=== PATIENT | female | born 1980 | race Caucasian/White ===

== ENCOUNTER 2016-08-18 15:05 | Emergency (ER) | payer OTHER ==
[2016-08-18] MEDS ORDERED: METHOCARBAMOL 500 MG TAB As Ordered ONE (16:08)
[2016-08-18] MEDS ORDERED: IBUPROFEN 800 MG TAB As Ordered ONE (16:09)
[2016-08-18 16:32] LABS: BASO % 0.3 % (0.0-1.0); EOS # 0.3 K/mm3 (0.0-0.50); EOS % 2.7 % (0.0-3.0); LARGE UNSTAINED CELL # 0.1 K/mm3 (0.0-0.4); LYMPH # 2.5 K/mm3 (1.5-4.5); LYMPH % 24.4 % (24.0-44.0); MEAN CORPUSCULAR HEMOGLOBIN 29.9 pg (27.0-33.0); MONO # 0.4 K/mm3 (0.0-0.8); NEUTROPHILS # 6.6 K/mm3 (1.8-7.7); NEUTROPHILS % 67.6 % (36.0-66.0); PLATELET COUNT, AUTOMATED 264 k/mm3 (150-450); RED CELL DISTRIBUTION WIDTH 13.8 % (11.5-14.5); WHITE BLOOD COUNT 9.8 K/mm3 (4.0-10.0)
[2016-08-18 16:47] LABS: ALBUMIN 3.9 GM/DL (3.2-5.2); ALBUMIN/GLOBULIN RATIO 1.03 (1.00-1.93); ALKALINE PHOSPHATASE 100 U/L (45-117); ALT/SGPT 30 U/L (12-78); AMYLASE 30 U/L (25-115); ANION GAP 11 MEQ/L (8-16); AST/SGOT 21 U/L (15-37); BILIRUBIN,DIRECT < 0.1 MG/DL (0.0-0.2); BILIRUBIN,TOTAL 0.4 MG/DL (0.2-1.0); BLOOD UREA NITROGEN 10 MG/DL (7-18); CALCIUM LEVEL 8.7 MG/DL (8.5-10.1); CARBON DIOXIDE LEVEL 27 MEQ/L (21-32); CHLORIDE LEVEL 100 MEQ/L (98-107); CREATININE FOR GFR 1.01 MG/DL (0.55-1.02); GLOMERULAR FILTRATION RATE > 60.0 (>60); GLUCOSE, FASTING 133 MG/DL (70-105); POTASSIUM SERUM 3.9 MEQ/L (3.5-5.1); SODIUM LEVEL 138 MEQ/L (136-145); TOTAL PROTEIN 7.7 GM/DL (6.4-8.2)
--- NOTE | 2016-08-18 17:34 | EDDOCDS ---
Nurse's Notes [facility] Name: Sarah Salmeron Age: 36 yrs Sex: Female : 1980 Arrival Date: 08/18/2016 Time: 15:05 Bed PR Private MD: Diagnosis: Strain of muscle, fascia and tendon of abdomen, lower back and pelvis Presentation: 08/18 15:09 Presenting complaint: Patient states: pt c/o upper back pain for approx 1 week. states ead "it felt like something popped." also states, "it goes from front to back, last time it felt like this I had a kidney infection.". Acute neurological deficits are not present. Mechanism of Injury: No Mechanism of Injury. Adult Sepsis Screening: The patient does not have new or worsening altered mentation. Patient's respiratory rate is less than 22. Systolic blood pressure is greater than 100. Patient has a qSOFA score of 0- Negative Sepsis Screen. Suicide/Homicide risk assessment- the patient denies having any suicidal and/or homicidal ideations and does not present with any other emotional, behavioral or mental health complaints. 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 Transition of care: patient was not received from another setting of care. 15:09 Acuity: WILLY Level 3 ead 15:09 Method Of Arrival: Walkin/Carried/Asstd ead Triage Assessment: 15:11 General: Appears in no apparent distress, Behavior is appropriate for age, cooperative. ead Pain: Location: back Pain currently is 9 out of 10 on a pain scale. HIV screening NA for this visit Offered previously. Neurological: No deficits noted. Respiratory: Airway is patent Respiratory effort is even, unlabored. GI: Reports nausea, Denies vomiting. : Denies burning with urination, pain with urination. Derm: Skin is pink, warm & dry. Musculoskeletal: Reports pain in back. 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 none - PMHx: Anxiety; Bipolar disorder; Panic Disorder; mitral valve prolapse; - PSHx: none; - Social history: Smoking status: Patient uses tobacco products, current every day smoker. No barriers to communication noted, The patient speaks fluent Ugandan, Speaks appropriately for age. - Family history: Not pertinent. - : The pt / caregiver states he / she is not on anticoagulants. Home medication list is obtained from the patient. - Exposure Risk Screening:: None identified. Screenin:31 Screening information is obtained from the patient. Fall risk: No risks identified. dsf Assistance ADL's: requires no assistance with activities of daily living. Abuse/DV Screen: The patient / caregiver reports he/she is: not in a situation that causes fear, pain or injury. Nutritional screening: No deficits noted. Advance Directives: Currently, there is no health care proxy. home support is adequate. Assessment: 16:17 Adult Sepsis Screening: The patient does not have new or worsening altered mentation. dsf Patient's respiratory rate is less than 22. Systolic blood pressure is greater than 100. Patient has a qSOFA score of 0- Negative Sepsis Screen. General: Appears in no apparent distress, Behavior is appropriate for age, cooperative. Pain: Location: upper back Pain currently is 8 out of 10 on a pain scale. Neurological: Level of Consciousness is awake, alert. Cardiovascular: Capillary refill < 3 seconds. Respiratory: Airway is patent Respiratory effort is even, unlabored, Respiratory pattern is regular, symmetrical. Derm: Skin is pink, warm & dry. 17:31 General: Appears in no apparent distress, Behavior is appropriate for age, cooperative. dsf Pain: Pain currently is 6 out of 10 on a pain scale. Neurological: Level of Consciousness is awake, alert, Oriented to person, place, time. Cardiovascular: Capillary refill < 3 seconds. Respiratory: Airway is patent Respiratory effort is even, unlabored, Respiratory pattern is regular, symmetrical. Derm: Skin is pink, warm & dry. Vital Signs: 15:07 BP 151 / 96; Pulse 98; Resp 18; Temp 96.6(O); Pulse Ox 99% ; Weight 130.18 kg (R); lr2 Height 5 ft. 5 in. (165.10 cm); 17:21 BP 137 / 83; Pulse 84; Resp 18; Temp 98.3(TE); Pulse Ox 96% on R/A; Pain 6/10; ar3 17:33 Pain 6/10; dsf 17:33 Pain 6/10; dsf 15:07 Body Mass Index 47.76 (130.18 kg, 165.10 cm) lr2 Vitals: 15:07 Log In Time: August 18, 2016 at 15:05. lr2 ED Course: 15:07 Patient visited by Chandrika Zepeda. lr2 15:07 Patient moved to Waiting lr2 15:08 Patient moved to Pre RCE lr2 15:10 Triage Initiated ead 15:21 Patient moved to Triage 1 [facility] 16:00 Krish Dubon PA is PHCP. mo1 16:00 Seven Kowalski MD is Attending Physician. mo1 16:01 Patient visited by Krish Dubon PA. mo1 16:17 Patient visited by Caitie Muñoz RN. dsf 16:17 Amylase Sent. dsf 16:17 Basic Metabolic Profile Sent. dsf 16:17 CBC with Diff Sent. dsf 16:17 Lipase Sent. dsf 16:17 Liver Profile Sent. dsf 16:17 Urinalysis Sent. dsf 16:17 Urine Culture Sent. dsf 16:19 Patient moved to TR7 dsf 16:24 Patient name changed from Sarah\\S\\\\S\\Salmeron\\S\\ to Sarah\\S\\ \\S\\Salmeron. EDMS 16:26 [facility] Payment Agreement was scanned into [employer] and attached to record. gjb 17:13 Patient moved to PR1 / 25 ar3 17:22 Patient visited by Yahaira Avila PCA. ar3 17:32 No IV's were initiated during this patient's visit. No procedures done that require dsf assistance. 17:33 The patient / caregiver is instructed regarding the plan of care and ED course. dsf Administered Medications: 16:18 Drug: Ibuprofen 800 mg [ibuprofen 800 mg tablet (1 tabs)] Route: PO; dsf 17:33 Follow up: Pain 6/10 Adult dsf 16:19 Drug: Methocarbamol 1 grams [methocarbamol 500 mg tablet (2 tabs)] Route: PO; dsf 17:33 Follow up: Pain 6/10 Adult; Response: Confirmed pt not driving. dsf Point of Care Testing: Urine : 16:19 hCG Reading: Negative; Control Reading: Positive; dsf Ranges: Order Results: Lab Order: Amylase; SPEC'M 08/18/16 16:11 Test: AMYLASE; Value: 30; Range: 25-115; Units: U/L; Status: F Lab Order: Basic Metabolic Profile; SPEC'M 08/18/16 16:11 Test: GLUCOSE, FASTING; Value: 133; Range: 70-105; Abnormal: Above high normal; Units: MG/DL; Status: F Test: BLOOD UREA NITROGEN; Value: 10; Range: 7-18; Units: MG/DL; Status: F Test: CREATININE FOR GFR; Value: 1.01; Range: 0.55-1.02; Units: MG/DL; Status: F Test: GLOMERULAR FILTRATION RATE; Value: > 60.0; Range: >60; Status: F Test: SODIUM LEVEL; Value: 138; Range: 136-145; Units: MEQ/L; Status: F Test: POTASSIUM SERUM; Value: 3.9; Range: 3.5-5.1; Units: MEQ/L; Status: F Test: CHLORIDE LEVEL; Value: 100; Range: 98-107; Units: MEQ/L; Status: F Test: CARBON DIOXIDE LEVEL; Value: 27; Range: 21-32; Units: MEQ/L; Status: F Test: ANION GAP; Value: 11; Range: 8-16; Units: MEQ/L; Status: F Test: CALCIUM LEVEL; Value: 8.7; Range: 8.5-10.1; Units: MG/DL; Status: F Test Note: ; Units are mL/min/1.73 m2 Chronic Kidney Disease Staging per NKF: Stage I & II GFR >=60 Normal to Mildly Decreased Stage III GFR 30-59 Moderately Decreased Stage IV GFR 15-29 Severely Decreased Stage V GFR <15 Very Little GFR Left ESRD GFR <15 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 Lab Order: CBC with Diff; SPEC'M 08/18/16 16:11 Test: WHITE BLOOD COUNT; Value: 9.8; Range: 4.0-10.0; Units: K/mm3; Status: F Test: RED BLOOD COUNT; Value: 5.01; Range: 4.00-5.40; Units: M/mm3; Status: F Test: HEMOGLOBIN; Value: 15.0; Range: 12.0-16.0; Units: g/dl; Status: F Test: HEMATOCRIT; Value: 44.0; Range: 36.0-47.0; Units: %; Status: F Test: MEAN CORPUSCULAR VOLUME; Value: 88.0; Range: 80.0-96.0; Units: fl; Status: F Test: MEAN CORPUSCULAR HEMOGLOBIN; Value: 29.9; Range: 27.0-33.0; Units: pg; Status: F Test: MEAN CORPUSCULAR HGB CONC; Value: 34.0; Range: 32.0-36.5; Units: g/dl; Status: F Test: RED CELL DISTRIBUTION WIDTH; Value: 13.8; Range: 11.5-14.5; Units: %; Status: F Test: PLATELET COUNT, AUTOMATED; Value: 264; Range: 150-450; Units: k/mm3; Status: F Test: NEUTROPHILS %; Value: 67.6; Range: 36.0-66.0; Abnormal: Above high normal; Units: %; Status: F Test: LYMPH %; Value: 24.4; Range: 24.0-44.0; Units: %; Status: F Test: MONO %; Value: 4.0; Range: 0.0-5.0; Units: %; Status: F Test: EOS %; Value: 2.7; Range: 0.0-3.0; Units: %; Status: F Test: BASO %; Value: 0.3; Range: 0.0-1.0; Units: %; Status: F Test: LARGE UNSTAINED CELL %; Value: 1.0; Range: 0.0-4.0; Units: %; Status: F Test: NEUTROPHILS #; Value: 6.6; Range: 1.8-7.7; Units: K/mm3; Status: F Test: LYMPH #; Value: 2.5; Range: 1.5-4.5; Units: K/mm3; Status: F Test: MONO #; Value: 0.4; Range: 0.0-0.8; Units: K/mm3; Status: F Test: EOS #; Value: 0.3; Range: 0.0-0.50; Units: K/mm3; Status: F Test: BASO #; Value: 0.0; Range: 0.0-0.2; Units: K/mm3; Status: F Test: LARGE UNSTAINED CELL #; Value: 0.1; Range: 0.0-0.4; Units: K/mm3; Status: F Lab Order: Lipase; [facility] 08/18/16 16:11 Test: LIPASE; Value: 156; Range: 73-393; Units: U/L; Status: F Lab Order: Liver Profile; [facility] 08/18/16 16:11 Test: AST/SGOT; Value: 21; Range: 15-37; Units: U/L; Status: F Test: ALT/SGPT; Value: 30; Range: 12-78; Units: U/L; Status: F Test: ALKALINE PHOSPHATASE; Value: 100; Range: 45-117; Units: U/L; Status: F Test: BILIRUBIN,TOTAL; Value: 0.4; Range: 0.2-1.0; Units: MG/DL; Status: F Test: BILIRUBIN,DIRECT; Value: < 0.1; Range: 0.0-0.2; Units: MG/DL; Status: F Test: TOTAL PROTEIN; Value: 7.7; Range: 6.4-8.2; Units: GM/DL; Status: F Test: ALBUMIN; Value: 3.9; Range: 3.2-5.2; Units: GM/DL; Status: F Test: ALBUMIN/GLOBULIN RATIO; Value: 1.03; Range: 1.00-1.93; Status: F Lab Order: Urinalysis; [facility] 08/18/16 16:11 Test: APPEARANCE, URINE; Value: CLEAR; Range: CLEAR; Status: F Test: COLOR, URINE; Value: YELLOW; Range: YELLOW; Status: F Test: PH,URINE; Value: 5.0; Range: 5.0-9.0; Units: UNITS; Status: F Test: SPECIFIC GRAVITY URINE AUTO; Value: 1.019; Range: 1.002-1.035; Status: F Test: PROTEIN, URINE AUTO; Value: NEGATIVE; Range: NEGATIVE; Units: mg/dL; Status: F Test: GLUCOSE, URINE (UA) AUTO; Value: NEGATIVE; Range: NEGATIVE; Units: mg/dL; Status: F Test: KETONE, URINE AUTO; Value: NEGATIVE; Range: NEGATIVE; Units: mg/dL; Status: F Test: UROBILINOGEN, URINE AUTO; Value: 0.2; Range: 0.0-2.0; Units: mg/dL; Status: F Test: BILIRUBIN, URINE AUTO; Value: NEGATIVE; Range: NEGATIVE; Status: F Test: NITRITE, URINE AUTO; Value: NEGATIVE; Range: NEGATIVE; Status: F Test: LEUKOCYTE ESTERASE, URINE AUTO; Value: NEGATIVE; Range: NEGATIVE; Status: F Test: BLOOD, URINE BLOOD; Value: NEGATIVE; Range: NEGATIVE; Status: F Test: WBC, URINE AUTO; Value: 1; Range: 0-3; Units: /HPF; Status: F Test: RBC, URINE AUTO; Value: 2; Range: 0-3; Units: /HPF; Status: F Test: BACTERIA, URINE AUTO; Value: 1+; Range: NEGATIVE; Abnormal: Above high normal; Status: F Test: SQUAMOUS EPITHELIAL CELL UR AU; Value: 1; Range: 0-6; Units: /HPF; Status: F Test: MUCUS, URINE; Value: SMALL; Range: NEGATIVE; Status: F Test: HYALINE CAST, URINE AUTO; Value: 0; Range: 0-1; Units: /LPF; Status: F Test: AMORPHOUS SEDIMENT; Value: SMALL; Range: NEGATIVE; Abnormal: Above high normal; Status: F Outcome: 17:10 Discharge ordered by Provider. mo1 17:32 Discharge Assessment: Patient awake, alert and oriented x 3. No cognitive and/or dsf functional deficits noted. Patient verbalized understanding of disposition instructions. patient administered narcotics - no. The following High Risk Discharge criteria are identified: None. Discharged to home ambulatory. Condition: stable. Discharge instructions given to patient, Instructed on discharge instructions, follow up and referral plans. medication usage, no driving heavy equipment, Demonstrated understanding of instructions, medications, Pt was receptive of discharge instructions/ teaching. Prescriptions given X 2, Work note provided to patient. No special radiology studies were completed. Property sent home with patient. 17:33 Patient left the ED. dsf Signatures: Dispatcher [employer] EDCT Mary Mckinney RN RN kpj Rabon, Alicia, CAMP MAINTENANCE SUPERVISOR CAMP MAINTENANCE SUPERVISOR ar3 Caitie Muñoz RN RN dsf Krish Dubon PA PA mo1 Dior HawkinsRN Stephani Cesar Laura lr2 MTDD
--- NOTE | 2016-08-18 17:34 | EDDOCDS ---
Physician Documentation [facility] Name: Sarah Salmeron Age: 36 yrs Sex: Female : 1980 Arrival Date: 08/18/2016 Time: 15:05 Bed PR Private MD: Disposition: 08/18/16 17:10 Discharged to Home/Self Care. Impression: Strain of muscle, fascia and tendon of abdomen, lower back and pelvis. - Condition is Stable. - Discharge Instructions: Back Pain, Adult, Muscle Strain. - Prescriptions for Ibuprofen 600 mg Oral Tablet - take 1 tablet by ORAL route every 6 hours As needed take with food; 30 tablet. Robaxin 500 mg Oral Tablet - take 2 tablet by ORAL route every 6 hours As needed; 40 tablet. - Work Release Form - 1 day, Medication Reconciliation, Local Pharmacy Hours form. - Follow up: Private Physician; When: Call to arrange an appointment; Reason: Recheck today's complaints, Continuance of care. - Problem is new. - Symptoms are unchanged. Historical: - Allergies: Naproxen; - Home Meds: 1. none - PMHx: Anxiety; Bipolar disorder; Panic Disorder; mitral valve prolapse; - PSHx: none; - Social history: Smoking status: Patient uses tobacco products, current every day smoker. No barriers to communication noted, The patient speaks fluent Wolof, Speaks appropriately for age. - Family history: Not pertinent. - : The pt / caregiver states he / she is not on anticoagulants. Home medication list is obtained from the patient. - Exposure Risk Screening:: None identified. 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 5 in. (165.10 cm); 17:21 BP 137 / 83; Pulse 84; Resp 18; Temp 98.3(TE); Pulse Ox 96% on R/A; Pain 6/10; ar3 17:33 Pain 6/10; dsf 17:33 Pain 6/10; dsf 15:07 Body Mass Index 47.76 (130.18 kg, 165.10 cm) lr2 MDM: 16:06 Methocarbamol 1 grams PO once ordered. mo1 16:06 Ibuprofen 800 mg PO once ordered. mo1 16:06 UCG by Nursing ordered. mo1 16:07 Amylase Ordered. EDMS 16:07 Basic Metabolic Profile Ordered. EDMS 16:07 CBC with Diff Ordered. EDMS 16:07 Lipase Ordered. EDMS 16:07 Liver Profile Ordered. EDMS 16:07 Urinalysis Ordered. EDMS 16:07 Urine Culture Ordered. EDMS 16:08 Abdomen, Flat\E\Upright,PA Chest Ordered. EDMS 16:08 NOTHING BY MOUTH+DIET ordered. EDMS 16:25 Financial registration complete. b 16:26 [facility] Payment Agreement was scanned into [employer] and attached to record. gjb 17:07 Amylase Reviewed. mo1 17:07 Urinalysis Reviewed. mo1 17:08 CBC with Diff Reviewed. mo1 17:08 Basic Metabolic Profile Reviewed. mo1 17:09 Liver Profile Reviewed. mo1 17:09 Lipase Reviewed. mo1 Point of Care Testing: Urine : 16:19 hCG Reading: Negative; Control Reading: Positive; dsf Ranges: Administered Medications: 16:18 Drug: Ibuprofen 800 mg [ibuprofen 800 mg tablet (1 tabs)] Route: PO; dsf 17:33 Follow up: Pain 6/10 Adult dsf 16:19 Drug: Methocarbamol 1 grams [methocarbamol 500 mg tablet (2 tabs)] Route: PO; dsf 17:33 Follow up: Pain 6/10 Adult; Response: Confirmed pt not driving. dsf Signatures: Dispatcher [employer] EDID Caitie Muñoz RN RN dsf Krish Dubon PA PA mo1 Dior HawkinsRN Stephani Cesar The chart was reviewed and I authenticate all verbal orders and agree with the evaluation and treatment provided.Corrections: (The following items were deleted from the chart) 16:13 16:07 LAB URINE TEST+LAB ordered. EDMS EDMS Attachments: 16:26 [facility] Payment Agreement gjb MTDD
--- NOTE | 2016-08-18 17:46 | REP ---
Abdominal series: three views: History: Mid back pain. Findings: Upright chest radiograph is normal. Heart size is normal. Lung charles are clear. There is no evidence of infiltrate or free subdiaphragmatic air. Supine and erect views of the abdomen demonstrate a normal bowel gas pattern. Psoas margins and flank stripes are intact. No mass, organomegaly, or pathologic calcification is appreciated. Impression: Negative three-view abdominal series. Signed by Haja Paul MD 08/18/2016 08:05 P
--- NOTE | 2016-08-20 18:34 | EDDOCDS ---
Physician Documentation [facility] Name: Sarah Salmeron Age: 36 yrs Sex: Female : 1980 Arrival Date: 08/18/2016 Time: 15:05 Bed PR Private MD: Disposition: 08/18/16 17:10 Discharged to Home/Self Care. Impression: Strain of muscle, fascia and tendon of abdomen, lower back and pelvis. - Condition is Stable. - Discharge Instructions: Back Pain, Adult, Muscle Strain. - Prescriptions for Ibuprofen 600 mg Oral Tablet - take 1 tablet by ORAL route every 6 hours As needed take with food; 30 tablet. Robaxin 500 mg Oral Tablet - take 2 tablet by ORAL route every 6 hours As needed; 40 tablet. - Work Release Form - 1 day, Medication Reconciliation, Local Pharmacy Hours form. - Follow up: Private Physician; When: Call to arrange an appointment; Reason: Recheck today's complaints, Continuance of care. - Problem is new. - Symptoms are unchanged. Historical: - Allergies: Naproxen; - Home Meds: 1. none - PMHx: Anxiety; Bipolar disorder; Panic Disorder; mitral valve prolapse; - PSHx: none; - Social history: Smoking status: Patient uses tobacco products, current every day smoker. No barriers to communication noted, The patient speaks fluent Romanian, Speaks appropriately for age. - Family history: Not pertinent. - : The pt / caregiver states he / she is not on anticoagulants. Home medication list is obtained from the patient. - Exposure Risk Screening:: None identified. 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 5 in. (165.10 cm); 17:21 BP 137 / 83; Pulse 84; Resp 18; Temp 98.3(TE); Pulse Ox 96% on R/A; Pain 6/10; ar3 17:33 Pain 6/10; dsf 17:33 Pain 6/10; dsf 15:07 Body Mass Index 47.76 (130.18 kg, 165.10 cm) lr2 MDM: 16:06 Methocarbamol 1 grams PO once ordered. mo1 16:06 Ibuprofen 800 mg PO once ordered. mo1 16:06 UCG by Nursing ordered. mo1 16:07 Amylase Ordered. EDMS 16:07 Basic Metabolic Profile Ordered. EDMS 16:07 CBC with Diff Ordered. EDMS 16:07 Lipase Ordered. EDMS 16:07 Liver Profile Ordered. EDMS 16:07 Urinalysis Ordered. EDMS 16:07 Urine Culture Ordered. EDMS 16:08 Abdomen, Flat\E\Upright,PA Chest Ordered. EDMS 16:08 NOTHING BY MOUTH+DIET ordered. EDMS 16:25 Financial registration complete. b 16:26 [facility] Payment Agreement was scanned into [employer] and attached to record. gjb 17:07 Amylase Reviewed. mo1 17:07 Urinalysis Reviewed. mo1 17:08 CBC with Diff Reviewed. mo1 17:08 Basic Metabolic Profile Reviewed. mo1 17:09 Liver Profile Reviewed. mo1 17:09 Lipase Reviewed. mo1 Point of Care Testing: Urine : 16:19 hCG Reading: Negative; Control Reading: Positive; dsf Ranges: Administered Medications: 16:18 Drug: Ibuprofen 800 mg [ibuprofen 800 mg tablet (1 tabs)] Route: PO; dsf 17:33 Follow up: Pain 6/10 Adult dsf 16:19 Drug: Methocarbamol 1 grams [methocarbamol 500 mg tablet (2 tabs)] Route: PO; dsf 17:33 Follow up: Pain 6/10 Adult; Response: Confirmed pt not driving. dsf Signatures: Dispatcher [employer] EDME Caitie Muñoz RN RN dsf Krish Dubon PA PA mo1 Dior HawkinsRN Stephani Cesar The chart was reviewed and I authenticate all verbal orders and agree with the evaluation and treatment provided.Corrections: (The following items were deleted from the chart) 16:13 16:07 LAB URINE TEST+LAB ordered. EDMS EDMS Attachments: 16:26 [facility] Payment Agreement gjb Chart Complete MTDD
--- NOTE | 2016-08-20 18:34 | EDDOCDS ---
Nurse's Notes [facility] Name: Sarah Salmeron Age: 36 yrs Sex: Female : 1980 Arrival Date: 08/18/2016 Time: 15:05 Bed PR Private MD: Diagnosis: Strain of muscle, fascia and tendon of abdomen, lower back and pelvis Presentation: 08/18 15:09 Presenting complaint: Patient states: pt c/o upper back pain for approx 1 week. states ead "it felt like something popped." also states, "it goes from front to back, last time it felt like this I had a kidney infection.". Acute neurological deficits are not present. Mechanism of Injury: No Mechanism of Injury. Adult Sepsis Screening: The patient does not have new or worsening altered mentation. Patient's respiratory rate is less than 22. Systolic blood pressure is greater than 100. Patient has a qSOFA score of 0- Negative Sepsis Screen. Suicide/Homicide risk assessment- the patient denies having any suicidal and/or homicidal ideations and does not present with any other emotional, behavioral or mental health complaints. Status: Patient is not a technical services librarian or dependent. Transition of care: patient was not received from another setting of care. 15:09 Acuity: WILLY Level 3 ead 15:09 Method Of Arrival: Walkin/Carried/Asstd ead Triage Assessment: 15:11 General: Appears in no apparent distress, Behavior is appropriate for age, cooperative. ead Pain: Location: back Pain currently is 9 out of 10 on a pain scale. HIV screening NA for this visit Offered previously. Neurological: No deficits noted. Respiratory: Airway is patent Respiratory effort is even, unlabored. GI: Reports nausea, Denies vomiting. : Denies burning with urination, pain with urination. Derm: Skin is pink, warm & dry. Musculoskeletal: Reports pain in back. 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 none - PMHx: Anxiety; Bipolar disorder; Panic Disorder; mitral valve prolapse; - PSHx: none; - Social history: Smoking status: Patient uses tobacco products, current every day smoker. No barriers to communication noted, The patient speaks fluent Niuean, Speaks appropriately for age. - Family history: Not pertinent. - : The pt / caregiver states he / she is not on anticoagulants. Home medication list is obtained from the patient. - Exposure Risk Screening:: None identified. Screenin:31 Screening information is obtained from the patient. Fall risk: No risks identified. dsf Assistance ADL's: requires no assistance with activities of daily living. Abuse/DV Screen: The patient / caregiver reports he/she is: not in a situation that causes fear, pain or injury. Nutritional screening: No deficits noted. Advance Directives: Currently, there is no health care proxy. home support is adequate. Assessment: 16:17 Adult Sepsis Screening: The patient does not have new or worsening altered mentation. dsf Patient's respiratory rate is less than 22. Systolic blood pressure is greater than 100. Patient has a qSOFA score of 0- Negative Sepsis Screen. General: Appears in no apparent distress, Behavior is appropriate for age, cooperative. Pain: Location: upper back Pain currently is 8 out of 10 on a pain scale. Neurological: Level of Consciousness is awake, alert. Cardiovascular: Capillary refill < 3 seconds. Respiratory: Airway is patent Respiratory effort is even, unlabored, Respiratory pattern is regular, symmetrical. Derm: Skin is pink, warm & dry. 17:31 General: Appears in no apparent distress, Behavior is appropriate for age, cooperative. dsf Pain: Pain currently is 6 out of 10 on a pain scale. Neurological: Level of Consciousness is awake, alert, Oriented to person, place, time. Cardiovascular: Capillary refill < 3 seconds. Respiratory: Airway is patent Respiratory effort is even, unlabored, Respiratory pattern is regular, symmetrical. Derm: Skin is pink, warm & dry. Vital Signs: 15:07 BP 151 / 96; Pulse 98; Resp 18; Temp 96.6(O); Pulse Ox 99% ; Weight 130.18 kg (R); lr2 Height 5 ft. 5 in. (165.10 cm); 17:21 BP 137 / 83; Pulse 84; Resp 18; Temp 98.3(TE); Pulse Ox 96% on R/A; Pain 6/10; ar3 17:33 Pain 6/10; dsf 17:33 Pain 6/10; dsf 15:07 Body Mass Index 47.76 (130.18 kg, 165.10 cm) lr2 Vitals: 15:07 Log In Time: August 18, 2016 at 15:05. lr2 ED Course: 15:07 Patient visited by Chandrika Zepeda. lr2 15:07 Patient moved to Waiting lr2 15:08 Patient moved to Pre RCE lr2 15:10 Triage Initiated ead 15:21 Patient moved to Triage 1 [facility] 16:00 Krish Dubon PA is PHCP. mo1 16:00 Seven Kowalski MD is Attending Physician. mo1 16:01 Patient visited by Krish Dubon PA. mo1 16:17 Patient visited by Caitie Muñoz RN. dsf 16:17 Amylase Sent. dsf 16:17 Basic Metabolic Profile Sent. dsf 16:17 CBC with Diff Sent. dsf 16:17 Lipase Sent. dsf 16:17 Liver Profile Sent. dsf 16:17 Urinalysis Sent. dsf 16:17 Urine Culture Sent. dsf 16:19 Patient moved to TR7 dsf 16:24 Patient name changed from Sarah\\S\\\\S\\Salmeron\\S\\ to Sarah\\S\\ \\S\\Salmeron. EDMS 16:[address] [facility] Payment Agreement was scanned into [employer] and attached to record. gjb 17:13 Patient moved to PR1 / 25 ar3 17:22 Patient visited by Yahaira Avila PCA. ar3 17:32 No IV's were initiated during this patient's visit. No procedures done that require dsf assistance. 17:33 The patient / caregiver is instructed regarding the plan of care and ED course. dsf 17:51 Abdomen, Flat\\E\\Upright,PA Chest Returned. EDMS Administered Medications: 16:18 Drug: Ibuprofen 800 mg [ibuprofen 800 mg tablet (1 tabs)] Route: PO; dsf 17:33 Follow up: Pain 6/10 Adult dsf 16:19 Drug: Methocarbamol 1 grams [methocarbamol 500 mg tablet (2 tabs)] Route: PO; dsf 17:33 Follow up: Pain 6/10 Adult; Response: Confirmed pt not driving. dsf Point of Care Testing: Urine : 16:19 hCG Reading: Negative; Control Reading: Positive; dsf Ranges: Order Results: Lab Order: Amylase; SPEC'M 08/18/16 16:11 Test: AMYLASE; Value: 30; Range: 25-115; Units: U/L; Status: F Lab Order: Basic Metabolic Profile; SPEC'M 08/18/16 16:11 Test: GLUCOSE, FASTING; Value: 133; Range: 70-105; Abnormal: Above high normal; Units: MG/DL; Status: F Test: BLOOD UREA NITROGEN; Value: 10; Range: 7-18; Units: MG/DL; Status: F Test: CREATININE FOR GFR; Value: 1.01; Range: 0.55-1.02; Units: MG/DL; Status: F Test: GLOMERULAR FILTRATION RATE; Value: > 60.0; Range: >60; Status: F Test: SODIUM LEVEL; Value: 138; Range: 136-145; Units: MEQ/L; Status: F Test: POTASSIUM SERUM; Value: 3.9; Range: 3.5-5.1; Units: MEQ/L; Status: F Test: CHLORIDE LEVEL; Value: 100; Range: 98-107; Units: MEQ/L; Status: F Test: CARBON DIOXIDE LEVEL; Value: 27; Range: 21-32; Units: MEQ/L; Status: F Test: ANION GAP; Value: 11; Range: 8-16; Units: MEQ/L; Status: F Test: CALCIUM LEVEL; Value: 8.7; Range: 8.5-10.1; Units: MG/DL; Status: F Test Note: ; Units are mL/min/1.73 m2 Chronic Kidney Disease Staging per NKF: Stage I & II GFR >=60 Normal to Mildly Decreased Stage III GFR 30-59 Moderately Decreased Stage IV GFR 15-29 Severely Decreased Stage V GFR <15 Very Little GFR Left ESRD GFR <15 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 Lab Order: CBC with Diff; SPEC'M 08/18/16 16:11 Test: WHITE BLOOD COUNT; Value: 9.8; Range: 4.0-10.0; Units: K/mm3; Status: F Test: RED BLOOD COUNT; Value: 5.01; Range: 4.00-5.40; Units: M/mm3; Status: F Test: HEMOGLOBIN; Value: 15.0; Range: 12.0-16.0; Units: g/dl; Status: F Test: HEMATOCRIT; Value: 44.0; Range: 36.0-47.0; Units: %; Status: F Test: MEAN CORPUSCULAR VOLUME; Value: 88.0; Range: 80.0-96.0; Units: fl; Status: F Test: MEAN CORPUSCULAR HEMOGLOBIN; Value: 29.9; Range: 27.0-33.0; Units: pg; Status: F Test: MEAN CORPUSCULAR HGB CONC; Value: 34.0; Range: 32.0-36.5; Units: g/dl; Status: F Test: RED CELL DISTRIBUTION WIDTH; Value: 13.8; Range: 11.5-14.5; Units: %; Status: F Test: PLATELET COUNT, AUTOMATED; Value: 264; Range: 150-450; Units: k/mm3; Status: F Test: NEUTROPHILS %; Value: 67.6; Range: 36.0-66.0; Abnormal: Above high normal; Units: %; Status: F Test: LYMPH %; Value: 24.4; Range: 24.0-44.0; Units: %; Status: F Test: MONO %; Value: 4.0; Range: 0.0-5.0; Units: %; Status: F Test: EOS %; Value: 2.7; Range: 0.0-3.0; Units: %; Status: F Test: BASO %; Value: 0.3; Range: 0.0-1.0; Units: %; Status: F Test: LARGE UNSTAINED CELL %; Value: 1.0; Range: 0.0-4.0; Units: %; Status: F Test: NEUTROPHILS #; Value: 6.6; Range: 1.8-7.7; Units: K/mm3; Status: F Test: LYMPH #; Value: 2.5; Range: 1.5-4.5; Units: K/mm3; Status: F Test: MONO #; Value: 0.4; Range: 0.0-0.8; Units: K/mm3; Status: F Test: EOS #; Value: 0.3; Range: 0.0-0.50; Units: K/mm3; Status: F Test: BASO #; Value: 0.0; Range: 0.0-0.2; Units: K/mm3; Status: F Test: LARGE UNSTAINED CELL #; Value: 0.1; Range: 0.0-0.4; Units: K/mm3; Status: F Lab Order: Lipase; [facility] 08/18/16 16:11 Test: LIPASE; Value: 156; Range: 73-393; Units: U/L; Status: F Lab Order: Liver Profile; [facility] 08/18/16 16:11 Test: AST/SGOT; Value: 21; Range: 15-37; Units: U/L; Status: F Test: ALT/SGPT; Value: 30; Range: 12-78; Units: U/L; Status: F Test: ALKALINE PHOSPHATASE; Value: 100; Range: 45-117; Units: U/L; Status: F Test: BILIRUBIN,TOTAL; Value: 0.4; Range: 0.2-1.0; Units: MG/DL; Status: F Test: BILIRUBIN,DIRECT; Value: < 0.1; Range: 0.0-0.2; Units: MG/DL; Status: F Test: TOTAL PROTEIN; Value: 7.7; Range: 6.4-8.2; Units: GM/DL; Status: F Test: ALBUMIN; Value: 3.9; Range: 3.2-5.2; Units: GM/DL; Status: F Test: ALBUMIN/GLOBULIN RATIO; Value: 1.03; Range: 1.00-1.93; Status: F Lab Order: Urinalysis; [facility] 08/18/16 16:11 Test: APPEARANCE, URINE; Value: CLEAR; Range: CLEAR; Status: F Test: COLOR, URINE; Value: YELLOW; Range: YELLOW; Status: F Test: PH,URINE; Value: 5.0; Range: 5.0-9.0; Units: UNITS; Status: F Test: SPECIFIC GRAVITY URINE AUTO; Value: 1.019; Range: 1.002-1.035; Status: F Test: PROTEIN, URINE AUTO; Value: NEGATIVE; Range: NEGATIVE; Units: mg/dL; Status: F Test: GLUCOSE, URINE (UA) AUTO; Value: NEGATIVE; Range: NEGATIVE; Units: mg/dL; Status: F Test: KETONE, URINE AUTO; Value: NEGATIVE; Range: NEGATIVE; Units: mg/dL; Status: F Test: UROBILINOGEN, URINE AUTO; Value: 0.2; Range: 0.0-2.0; Units: mg/dL; Status: F Test: BILIRUBIN, URINE AUTO; Value: NEGATIVE; Range: NEGATIVE; Status: F Test: NITRITE, URINE AUTO; Value: NEGATIVE; Range: NEGATIVE; Status: F Test: LEUKOCYTE ESTERASE, URINE AUTO; Value: NEGATIVE; Range: NEGATIVE; Status: F Test: BLOOD, URINE BLOOD; Value: NEGATIVE; Range: NEGATIVE; Status: F Test: WBC, URINE AUTO; Value: 1; Range: 0-3; Units: /HPF; Status: F Test: RBC, URINE AUTO; Value: 2; Range: 0-3; Units: /HPF; Status: F Test: BACTERIA, URINE AUTO; Value: 1+; Range: NEGATIVE; Abnormal: Above high normal; Status: F Test: SQUAMOUS EPITHELIAL CELL UR AU; Value: 1; Range: 0-6; Units: /HPF; Status: F Test: MUCUS, URINE; Value: SMALL; Range: NEGATIVE; Status: F Test: HYALINE CAST, URINE AUTO; Value: 0; Range: 0-1; Units: /LPF; Status: F Test: AMORPHOUS SEDIMENT; Value: SMALL; Range: NEGATIVE; Abnormal: Above high normal; Status: F Lab Order: Urine Culture; SPEC'M 08/18/16 16:11 Test: URINE CULTURE; Value: <EXTERNAL COMMENT eCWMed> FULL REPORT IN LAB NOTES (eCW and Medent).; Status: F Test: URINE CULTURE; Value: URINE CULTURE RESULT NO GROWTH CLINICAL SIGNIFICANCE 1 ORGANISM; Status: F Radiology Order: Abdomen, Flat\\E\\Upright,PA Chest Test: Abdomen, Flat\\E\\Upright,PA Chest REASON FOR EXAMINATION: mid back pain; Abdominal series: three views:; ; History: Mid back pain.; ; Findings: Upright chest radiograph is normal. Heart size is normal. Lung; charles are clear. There is no evidence of infiltrate or free subdiaphragmatic; air.; ; Supine and erect views of the abdomen demonstrate a normal bowel gas pattern.; Psoas margins and flank stripes are intact. No mass, organomegaly, or pathologic; calcification is appreciated.; ; Impression:; ; Negative three-view abdominal series.; ; ; Signed by; Haja Paul MD 08/18/2016 08:05 P; Outcome: 17:10 Discharge ordered by Provider. mo1 17:32 Discharge Assessment: Patient awake, alert and oriented x 3. No cognitive and/or dsf functional deficits noted. Patient verbalized understanding of disposition instructions. patient administered narcotics - no. The following High Risk Discharge criteria are identified: None. Discharged to home ambulatory. Condition: stable. Discharge instructions given to patient, Instructed on discharge instructions, follow up and referral plans. medication usage, no driving heavy equipment, Demonstrated understanding of instructions, medications, Pt was receptive of discharge instructions/ teaching. Prescriptions given X 2, Work note provided to patient. No special radiology studies were completed. Property sent home with patient. 17:33 Patient left the ED. dsf Signatures: Dispatcher [employer] EDMS Mary Mckinney, RN RN kpj Yahaira Avila, LIABILITY ANALYST LIABILITY ANALYST ar3 Caitie MuñozRN RN dsf Krish Dubon PA PA mo1 Dior Hawkins,RN RN Stephani Brooks Laura lr2 Chart Complete RASHAAD
--- NOTE | 2016-08-20 18:34 | EDDOCDS ---
Physician Documentation [facility] Name: Sarah Salmeron Age: 36 yrs Sex: Female : 1980 Arrival Date: 08/18/2016 Time: 15:05 Bed PR Private MD: Disposition: 08/18/16 17:10 Discharged to Home/Self Care. Impression: Strain of muscle, fascia and tendon of abdomen, lower back and pelvis. - Condition is Stable. - Discharge Instructions: Back Pain, Adult, Muscle Strain. - Prescriptions for Ibuprofen 600 mg Oral Tablet - take 1 tablet by ORAL route every 6 hours As needed take with food; 30 tablet. Robaxin 500 mg Oral Tablet - take 2 tablet by ORAL route every 6 hours As needed; 40 tablet. - Work Release Form - 1 day, Medication Reconciliation, Local Pharmacy Hours form. - Follow up: Private Physician; When: Call to arrange an appointment; Reason: Recheck today's complaints, Continuance of care. - Problem is new. - Symptoms are unchanged. Historical: - Allergies: Naproxen; - Home Meds: 1. none - PMHx: Anxiety; Bipolar disorder; Panic Disorder; mitral valve prolapse; - PSHx: none; - Social history: Smoking status: Patient uses tobacco products, current every day smoker. No barriers to communication noted, The patient speaks fluent Macedonian, Speaks appropriately for age. - Family history: Not pertinent. - : The pt / caregiver states he / she is not on anticoagulants. Home medication list is obtained from the patient. - Exposure Risk Screening:: None identified. 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 5 in. (165.10 cm); 17:21 BP 137 / 83; Pulse 84; Resp 18; Temp 98.3(TE); Pulse Ox 96% on R/A; Pain 6/10; ar3 17:33 Pain 6/10; dsf 17:33 Pain 6/10; dsf 15:07 Body Mass Index 47.76 (130.18 kg, 165.10 cm) lr2 MDM: 16:06 Methocarbamol 1 grams PO once ordered. mo1 16:06 Ibuprofen 800 mg PO once ordered. mo1 16:06 UCG by Nursing ordered. mo1 16:07 Amylase Ordered. EDMS 16:07 Basic Metabolic Profile Ordered. EDMS 16:07 CBC with Diff Ordered. EDMS 16:07 Lipase Ordered. EDMS 16:07 Liver Profile Ordered. EDMS 16:07 Urinalysis Ordered. EDMS 16:07 Urine Culture Ordered. EDMS 16:08 Abdomen, Flat\E\Upright,PA Chest Ordered. EDMS 16:08 NOTHING BY MOUTH+DIET ordered. EDMS 16:25 Financial registration complete. b 16:26 [facility] Payment Agreement was scanned into [employer] and attached to record. gjb 17:07 Amylase Reviewed. mo1 17:07 Urinalysis Reviewed. mo1 17:08 CBC with Diff Reviewed. mo1 17:08 Basic Metabolic Profile Reviewed. mo1 17:09 Liver Profile Reviewed. mo1 17:09 Lipase Reviewed. mo1 Point of Care Testing: Urine : 16:19 hCG Reading: Negative; Control Reading: Positive; dsf Ranges: Administered Medications: 16:18 Drug: Ibuprofen 800 mg [ibuprofen 800 mg tablet (1 tabs)] Route: PO; dsf 17:33 Follow up: Pain 6/10 Adult dsf 16:19 Drug: Methocarbamol 1 grams [methocarbamol 500 mg tablet (2 tabs)] Route: PO; dsf 17:33 Follow up: Pain 6/10 Adult; Response: Confirmed pt not driving. dsf Signatures: Dispatcher [employer] EDSD Caitie Muñoz RN RN dsf Krish Dubon PA PA mo1 Dior HawkinsRN Stephani Cesar The chart was reviewed and I authenticate all verbal orders and agree with the evaluation and treatment provided.Corrections: (The following items were deleted from the chart) 16:13 16:07 LAB URINE TEST+LAB ordered. EDMS EDMS Attachments: 16:26 [facility] Payment Agreement gjb Chart Complete MTDD
== END 2016-08-18 17:33 | disposition home or self-care (01) ==
LOC: M ED 15:05
DX: S39.012A Strain of muscle, fascia and tendon of lower back, initial encounter (principal); F31.9 Bipolar disorder, unspecified; F41.0 Panic disorder [episodic paroxysmal anxiety]; F17.210 Nicotine dependence, cigarettes, uncomplicated; Z88.5 Allergy status to narcotic agent; X58.XXXA Exposure to other specified factors, initial encounter; Y92.89 Other specified places as the place of occurrence of the external cause; Y93.89 Activity, other specified; Y99.9 Unspecified external cause status

== ENCOUNTER → 2016-09-15 | Outpatient (REF) | payer OTHER | LOC: M LAB REF 09:27 | PROVIDERS: ATTEND Physician Assistant | DX: J02.9 Acute pharyngitis, unspecified (principal) ==

== ENCOUNTER 2016-12-18 19:21 | Emergency (ER) | payer BC, OTHER ==
[~2016-12-18] VITALS: Ht 152.4 cm; Wt 134.8 kg
[2016-12-18] MEDS ORDERED: ACET1TAB17 PO (19:44)
[2016-12-18] MEDS ORDERED: ALBUTEROL 90 MCG/ACT 8GM HFA INHALER INH ONE (22:00)
[2016-12-18] MEDS ORDERED: ACETAMINOPHEN 325 MG TAB PO ONE (22:00)
[2016-12-18] MEDS ORDERED: ZITHTAB PO (22:43)
[2016-12-18] MEDS ORDERED: ALBU17IN2 INH (22:43)
[2016-12-18] MEDS ORDERED: AZITHROMYCIN 250 MG TAB PO ONE (22:45)
[2016-12-18 22:51] VITALS: BP 141/95
--- NOTE | 2016-12-19 07:38 | ECGEPIP ---
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
--- NOTE | 2016-12-19 07:48 | REP ---
Clinical: Cough . Comparison: 08/18/2016 . Technique: PA and lateral. Findings: The mediastinum and cardiac silhouette are normal. The lung charles are clear and without acute consolidation, effusion, or pneumothorax. The skeletal structures are intact and normal. Impression: 1. No acute cardiopulmonary process. Signed by Donell Poon MD 12/19/2016 07:40 A
== END 2016-12-18 22:53 | disposition home or self-care (01) ==
LOC: M ED 21:14
DX: J20.9 Acute bronchitis, unspecified (principal); F31.9 Bipolar disorder, unspecified; F41.9 Anxiety disorder, unspecified; I34.1 Nonrheumatic mitral (valve) prolapse; Z87.440 Personal history of urinary (tract) infections; F17.210 Nicotine dependence, cigarettes, uncomplicated; Z88.8 Allergy status to other drugs, medicaments and biological substances

== ENCOUNTER → 2018-08-25 | Outpatient (REF) | payer BC ==
[~2018-08-25] MED LIST: ACET1TAB55 PO; ALBU17IN2 INH; ZITHTAB PO
[2018-08-25 12:54] LABS: ALBUMIN 3.9 GM/DL (3.2-5.2); ALT/SGPT 27 U/L (12-78); BILIRUBIN,TOTAL 0.3 MG/DL (0.2-1.0); BLOOD UREA NITROGEN 13 MG/DL (7-18); CALCIUM LEVEL 9.1 MG/DL (8.5-10.1); CARBON DIOXIDE LEVEL 29 MEQ/L (21-32); CHLORIDE LEVEL 101 MEQ/L (98-107); CHOLESTEROL LEVEL 227 MG/DL (<200); CHOLESTEROL RISK RATIO 6.676 (<5); CREATININE FOR GFR 0.66 MG/DL (0.55-1.30); GLOMERULAR FILTRATION RATE > 60.0 (>60); GLUCOSE, FASTING 92 MG/DL (70-100); HDL CHOLESTEROL 34 MG/DL (>40); LDL CHOLESTEROL 124 MG/DL (<100); NON-HDL-C 193 MG/DL; POTASSIUM SERUM 4.5 MEQ/L (3.5-5.1); SODIUM LEVEL 137 MEQ/L (136-145); TOTAL PROTEIN 7.4 GM/DL (6.4-8.2); TRIGLYCERIDES LEVEL 345 MG/DL (<150)
== END ==
LOC: M SFHCPLAZ 08:24
PROVIDERS: ATTEND Nurse Practitioner Family
DX: Z00.00 Encounter for general adult medical examination without abnormal findings (principal); Z13.220 Encounter for screening for lipoid disorders; E66.01 Morbid (severe) obesity due to excess calories; F41.8 Other specified anxiety disorders

== ENCOUNTER 2019-01-16 21:01 | Emergency (ER) | payer BC ==
[~2019-01-16] VITALS: Ht 152.4 cm; Wt 143.2 kg
[2019-01-16] MEDS ORDERED: IPRATROPIUM 0.5MG/ALBUTEROL 2.5MG INH SOL UD 3ML (DUONEB)(J7620) NEB ONE (21:30)
[2019-01-16] MEDS ORDERED: dexameTHASONE 20 MG/5 ML VIAL (J1100) IV ONE (21:30)
[2019-01-16 21:40] LABS: BASO % 0.3 % (0.0-1.0); EOS # 0.1 10^3/uL (0.0-0.50); EOS % 0.8 % (0.0-3.0); HEMATOCRIT 47.9 % (36.0-47.0); HEMOGLOBIN 15.6 g/dl (12.0-15.5); LYMPH # 2.6 10^3/uL (1.5-4.5); LYMPH % 21.9 % (24.0-44.0); MEAN CORPUSCULAR HEMOGLOBIN 29.8 pg (27.0-33.0); MEAN CORPUSCULAR HGB CONC 32.6 g/dl (32.0-36.5); MEAN CORPUSCULAR VOLUME 91.4 fl (80.0-96.0); MONO # 0.7 10^3/uL (0.0-0.8); MONO % 5.7 % (0.0-5.0); NEUTROPHILS # 8.5 10^3/uL (1.8-7.7); NEUTROPHILS % 70.6 % (36.0-66.0); PLATELET COUNT, AUTOMATED 246 10^3/uL (150-450); RED BLOOD COUNT 5.24 10^6/uL (4.00-5.40); WHITE BLOOD COUNT 12.1 10^3/uL (4.0-10.0)
[2019-01-16 21:52] LABS: BLOOD UREA NITROGEN 10 MG/DL (7-18); CALCIUM LEVEL 9.4 MG/DL (8.5-10.1); CARBON DIOXIDE LEVEL 28 MEQ/L (21-32); CHLORIDE LEVEL 106 MEQ/L (98-107); CK-MB VALUE MASS 6.2 NG/ML (<3.6); CPK CREATINE PHOSPHOKINASE 244 U/L (26-192); GLOMERULAR FILTRATION RATE > 60.0 (>60); GLUCOSE, FASTING 124 MG/DL (70-100); INR 1.07; MB/CK RELATIVE INDEX 2.54 (< OR =4); POTASSIUM SERUM 4.2 MEQ/L (3.5-5.1); PROTHROMBIN TIME 13.6 SECONDS (11.8-14.0); SODIUM LEVEL 140 MEQ/L (136-145); TROPONIN I < 0.02 NG/ML (< 0.10)
[2019-01-16 21:53] LABS: PARTIAL THROMBOPLASTIN TIME 35.7 SECONDS (25.0-38.4)
[2019-01-16 22:14] LABS: HCG, SERUM QUALITATIVE NEGATIVE (NEGATIVE)
[2019-01-16] MEDS ORDERED: ISOVUE-370 76% 100ML VIAL (Q9967) As Ordered ONE (22:26)
--- NOTE | 2019-01-16 23:26 | REPVR ---
EXAM: CT Angiography Chest With Contrast EXAM DATE/TIME: 01/16/2019 10:28 PM CLINICAL HISTORY: 38 years old, female; Chest pain; Additional info: Cp/dysp TECHNIQUE: Imaging protocol: Axial computed tomographic angiography images of the chest with intravenous contrast using CT angiography protocol. Coronal and sagittal reformatted images were created and reviewed. 3D rendering: MIP reconstructed images were created and reviewed. Radiation optimization: All CT scans at this facility use at least one of these dose optimization techniques: automated exposure control; mA and/or kV adjustment per patient size (includes targeted exams where dose is matched to clinical indication); or iterative reconstruction. Contrast material: ISOVUE 370;Contrast volume: 75 ml;Contrast route: IV; COMPARISON: CR Chest, 2 view PA, Lat 12/18/2016 10:20 PM FINDINGS: Pulmonary arteries: There are no pulmonary emboli. Aorta: The aorta demonstrates mild atherosclerotic calcification. There is no aortic dissection or aneurysm. Lungs: Bilateral groundglass opacities likely secondary to a suboptimal respiratory effort and atelectasis. Small calcified granuloma left lower lobe. Pleural space: Unremarkable. No pneumothorax. No pleural effusion. Heart: Unremarkable. No cardiomegaly. No pericardial effusion. Lymph nodes: Unremarkable. No enlarged lymph nodes. Bones/joints: Unremarkable. No acute fracture. Soft tissues: Unremarkable. IMPRESSION: 1. There is no aortic dissection or aneurysm. 2. There are no pulmonary emboli. Electronically signed by: Buck Callaway On 01/16/2019 23:26:13 PM
[2019-01-16] MEDS ORDERED: PRED20TA PO (23:32)
[2019-01-16 23:45] VITALS: BP 121/58
--- NOTE | 2019-01-17 07:56 | ECGEPIP ---
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
== END 2019-01-16 23:58 | disposition home or self-care (01) ==
LOC: M ED 21:01
DX: J20.9 Acute bronchitis, unspecified (principal); Z72.0 Tobacco use; I45.19 Other right bundle-branch block; E66.01 Morbid (severe) obesity due to excess calories; J45.909 Unspecified asthma, uncomplicated; F41.9 Anxiety disorder, unspecified; Z88.6 Allergy status to analgesic agent
CPT/HCPCS: 71275; 80048; 82550; 82553; 84703; 85025; 85610; 85730; 93005; 94640; 96374; 99284; J1100; Q9967

== ENCOUNTER → 2019-02-16 | Outpatient (REF) | payer BC ==
[~2019-02-16] MED LIST changes: +PRED20TA PO
== END ==
LOC: M SFHCPLAZ 16:43
PROVIDERS: ATTEND Nurse Practitioner Family
DX: R30.0 Dysuria (principal)

== ENCOUNTER → 2019-07-07 | Outpatient (REF) | payer BC, OTHER ==
[2019-07-07 15:41] LABS: AMORPHOUS SEDIMENT SMALL (NEGATIVE); APPEARANCE, URINE TURBID (CLEAR); BACTERIA, URINE AUTO NEGATIVE (NEGATIVE); BILIRUBIN, URINE AUTO NEGATIVE (NEGATIVE); BLOOD, URINE BLOOD 1+ (NEGATIVE); COLOR, URINE YELLOW (YELLOW); GLUCOSE, URINE (UA) AUTO NEGATIVE (NEGATIVE); KETONE, URINE AUTO NEGATIVE (NEGATIVE); LEUKOCYTE ESTERASE, URINE AUTO NEGATIVE (NEGATIVE); MUCUS, URINE SMALL (NEGATIVE); NITRITE, URINE AUTO NEGATIVE (NEGATIVE); PROTEIN, URINE AUTO NEGATIVE (NEGATIVE); RBC, URINE AUTO 4 /HPF (0-3); SPECIFIC GRAVITY URINE AUTO 1.026 (1.002-1.035); SQUAMOUS EPITHELIAL CELL UR AU 12 /HPF (0-6); UROBILINOGEN, URINE AUTO 0.2 mg/dL (0.0-2.0); WBC, URINE AUTO 3 /HPF (0-3)
== END ==
LOC: M SFHCPLAZ 13:20
PROVIDERS: ATTEND Physician Assistant
DX: R30.0 Dysuria (principal)

== ENCOUNTER → 2019-08-15 | Outpatient (CLI) | payer OTHER ==
[2019-08-15 12:59] LABS: HEPATITIS B SURFACE ANTIGEN NEGATIVE (NEGATIVE); HEPATITIS C VIRUS ABY INDEX < 0.0 INDEX (<0.8); HIV 1&2 SCREEN CENTAUR NEGATIVE (NEGATIVE)
[2019-08-15 15:52] LABS: CHLAMYDIA DNA AMPLIFICATION NEGATIVE (NEGATIVE); GC DNA AMPLIFICATION NEGATIVE (NEGATIVE)
== END ==
LOC: M PLALAB 09:07
PROVIDERS: ATTEND Advanced Practice Midwife
DX: Z11.3 Encounter for screening for infections with a predominantly sexual mode of transmission (principal)

== ENCOUNTER → 2020-08-20 | Outpatient (REF) | payer OTHER ==
[2020-08-20 16:01] LABS: ALBUMIN 3.7 GM/DL (3.2-5.2); ALT/SGPT 27 U/L (12-78); BILIRUBIN,TOTAL 0.3 MG/DL (0.2-1.0); BLOOD UREA NITROGEN 11 MG/DL (7-18); CARBON DIOXIDE LEVEL 27 MEQ/L (21-32); CHLORIDE LEVEL 104 MEQ/L (98-107); CHOLESTEROL LEVEL 238 MG/DL (<200); CHOLESTEROL RISK RATIO 6.432 (<5); CREATININE FOR GFR 0.82 MG/DL (0.55-1.30); GLOMERULAR FILTRATION RATE > 60.0 (>58); GLUCOSE, FASTING 115 MG/DL (70-100); HDL CHOLESTEROL 37 MG/DL (>40); LDL CHOLESTEROL 171 MG/DL (<100); NON-HDL-C 201 MG/DL; POTASSIUM SERUM 4.6 MEQ/L (3.5-5.1); SODIUM LEVEL 138 MEQ/L (136-145); TOTAL PROTEIN 7.6 GM/DL (6.4-8.2); TRIGLYCERIDES LEVEL 152 MG/DL (<150)
== END ==
LOC: M SFHCPLAZ 11:25
PROVIDERS: ATTEND Physician Assistant
DX: E78.2 Mixed hyperlipidemia (principal)

== ENCOUNTER → 2020-08-20 | Outpatient (CLI) | payer OTHER ==
[2020-08-20 16:00] LABS: BLOOD UREA NITROGEN 11 MG/DL (7-18); CALCIUM LEVEL 8.8 MG/DL (8.5-10.1); CARBON DIOXIDE LEVEL 25 MEQ/L (21-32); CHLORIDE LEVEL 104 MEQ/L (98-107); CHOLESTEROL LEVEL 231 MG/DL (<200); CHOLESTEROL RISK RATIO 6.794 (<5); CREATININE FOR GFR 0.79 MG/DL (0.55-1.30); GLOMERULAR FILTRATION RATE > 60.0 (>58); GLUCOSE, FASTING 111 MG/DL (70-100); HDL CHOLESTEROL 34 MG/DL (>40); LDL CHOLESTEROL 167 MG/DL (<100); NON-HDL-C 197 MG/DL; POTASSIUM SERUM 4.5 MEQ/L (3.5-5.1); SODIUM LEVEL 138 MEQ/L (136-145); TRIGLYCERIDES LEVEL 148 MG/DL (<150)
== END ==
LOC: M PLALAB 11:25
PROVIDERS: ATTEND Psychiatry & Neurology Psychiatry
DX: F31.81 Bipolar II disorder (principal); F41.1 Generalized anxiety disorder; F41.0 Panic disorder [episodic paroxysmal anxiety]

== ENCOUNTER → 2020-10-30 | Outpatient (REF) | payer OTHER | LOC: M LAB REF 16:11 | PROVIDERS: ATTEND Physician Assistant | DX: J33.9 Nasal polyp, unspecified (principal) ==

== ENCOUNTER → 2020-11-30 | Outpatient (CLI) | payer OTHER | LOC: M LABSMTC 13:26 | PROVIDERS: ATTEND Orthopaedic Surgery | DX: Z11.52 Encounter for screening for COVID-19 (principal) ==

== ENCOUNTER → 2021-01-09 | Outpatient (CLI) | payer OTHER ==
[2021-01-09 14:34] LABS: BLOOD UREA NITROGEN 10 MG/DL (7-18); GLOMERULAR FILTRATION RATE > 60.0 (>58); LITHIUM LEVEL 0.56 MEQ/L (0.60-1.20)
== END ==
LOC: M PLALAB 09:14
PROVIDERS: ATTEND Psychiatry & Neurology Psychiatry
DX: F31.81 Bipolar II disorder (principal)

== ENCOUNTER → 2021-09-24 | Outpatient (CLI) | payer OTHER ==
[2021-09-24 12:58] LABS: BASO % 0.4 % (0.0-1.0); EOS # 0.2 10^3/uL (0.0-0.5); EOS % 1.7 % (0.0-3.0); HEMATOCRIT 50.9 % (36.0-47.0); LYMPH # 2.2 10^3/uL (1.5-5.0); LYMPH % 19.6 % (24.0-44.0); MEAN CORPUSCULAR HEMOGLOBIN 28.8 pg (27.0-33.0); MEAN CORPUSCULAR HGB CONC 31.4 g/dl (32.0-36.5); MEAN CORPUSCULAR VOLUME 91.5 fl (80.0-96.0); MONO # 0.6 10^3/uL (0.0-0.8); MONO % 5.6 % (2.0-8.0); NEUTROPHILS # 8.1 10^3/uL (1.5-8.5); NEUTROPHILS % 72.1 % (36.0-66.0); PLATELET COUNT, AUTOMATED 262 10^3/uL (150-450); RED BLOOD COUNT 5.56 10^6/uL (4.00-5.40); WHITE BLOOD COUNT 11.2 10^3/uL (4.0-10.0)
[2021-09-24 13:11] LABS: HEMOGLOBIN A1c 6.1 %
[2021-09-24 13:41] LABS: ALBUMIN 3.8 GM/DL (3.2-5.2); ALT/SGPT 32 U/L (12-78); BILIRUBIN,TOTAL 0.6 MG/DL (0.2-1.0); BLOOD UREA NITROGEN 10 MG/DL (7-18); CALCIUM LEVEL 9.2 MG/DL (8.5-10.1); CARBON DIOXIDE LEVEL 30 MEQ/L (21-32); CHLORIDE LEVEL 100 MEQ/L (98-107); CHOLESTEROL LEVEL 217 MG/DL (<200); CHOLESTEROL RISK RATIO 6.027 (<5); FREE T4 1.03 NG/DL (0.76-1.46); GLOMERULAR FILTRATION RATE > 60.0 (>58); GLUCOSE, FASTING 115 MG/DL (70-100); HDL CHOLESTEROL 36 MG/DL (>40); LDL CHOLESTEROL 114 MG/DL (<100); NON-HDL-C 181 MG/DL; POTASSIUM SERUM 4.7 MEQ/L (3.5-5.1); SODIUM LEVEL 137 MEQ/L (136-145); TOTAL PROTEIN 7.5 GM/DL (6.4-8.2); TRIGLYCERIDES LEVEL 335 MG/DL (<150)
== END ==
LOC: M PLAIMG 09:02
PROVIDERS: ATTEND Physician Assistant
DX: M54.42 Lumbago with sciatica, left side (principal); Z68.44 Body mass index [BMI] 60.0-69.9, adult

== ENCOUNTER → 2021-09-24 | Outpatient (CLI) | payer OTHER | LOC: M WHC 08:03 | PROVIDERS: ATTEND Physician Assistant | DX: Z80.3 Family history of malignant neoplasm of breast (principal) ==

== ENCOUNTER → 2021-10-08 | Outpatient (CLI) | payer OTHER | LOC: M WHC 08:35 | PROVIDERS: ATTEND Physician Assistant | DX: R92.8 Other abnormal and inconclusive findings on diagnostic imaging of breast (principal); Z80.3 Family history of malignant neoplasm of breast | CPT/HCPCS: 76642; 77065; G0279 ==

== ENCOUNTER → 2021-11-06 | Outpatient (CLI) | payer OTHER ==
[~2021-11-06] MED LIST changes: +ABIL1TAB13 PO; +ATOR1TAB19 PO; +BUSP10TA PO; +CETI-24 PO; +CLIN2CR PV; +DOXY100T27 PO; +FLUT15.820 NARES; +HIBI4LIQ EX; +LITH300C PO; +MULT-90 PO; +TIZA4CAP PO; +TRAZ-252 PO; +VENTAER INH
== END ==
LOC: M PLALAB 15:29
PROVIDERS: ATTEND Surgery
DX: Z13.79 Encounter for other screening for genetic and chromosomal anomalies (principal)

== ENCOUNTER → 2022-05-22 | Outpatient (CLI) | payer OTHER | LOC: M WHC 09:08 | PROVIDERS: ATTEND Nurse Practitioner Women's Health | DX: E24.2 Drug-induced Cushing's syndrome (principal) ==

== ENCOUNTER → 2022-08-25 | Outpatient (CLI) | payer OTHER, MEDICAID ==
[2022-08-25 13:48] LABS: BASO # 0.1 10^3/uL (0.0-0.2); BASO % 0.5 % (0.0-1.0); EOS # 0.1 10^3/uL (0.0-0.5); EOS % 1.3 % (0.0-3.0); HEMATOCRIT 51.9 % (36.0-47.0); HEMOGLOBIN 16.3 g/dl (12.0-15.5); LYMPH % 19.1 % (24.0-44.0); MEAN CORPUSCULAR HGB CONC 31.4 g/dl (32.0-36.5); MEAN CORPUSCULAR VOLUME 95.4 fl (80.0-96.0); MONO # 0.6 10^3/uL (0.0-0.8); MONO % 5.4 % (2.0-8.0); NEUTROPHILS # 7.7 10^3/uL (1.5-8.5); NEUTROPHILS % 72.3 % (36.0-66.0); PLATELET COUNT, AUTOMATED 262 10^3/uL (150-450); RED BLOOD COUNT 5.44 10^6/uL (4.00-5.40); WHITE BLOOD COUNT 10.7 10^3/uL (4.0-10.0)
[2022-08-25 15:52] LABS: ALBUMIN 3.6 G/DL (3.2-5.2); ALKALINE PHOSPHATASE 113 U/L (46-116); ALT/SGPT 29 U/L (7.0-40); AST/SGOT 31 U/L (<34); BILIRUBIN,TOTAL 0.5 MG/DL (0.3-1.2); BLOOD UREA NITROGEN 10 MG/DL (9-23); CALCIUM LEVEL 9.1 MG/DL (8.5-10.1); CARBON DIOXIDE LEVEL 31 MMOL/L (20-31); CHLORIDE LEVEL 98 MMOL/L (98-107); CHOLESTEROL LEVEL 141 MG/DL (<200); CHOLESTEROL RISK RATIO 3.66 (<5); CREATININE FOR GFR 0.64 MG/DL (0.55-1.30); FREE T4 1.05 NG/DL (0.89-1.76); GLOMERULAR FILTRATION RATE > 60.0 (>58); GLUCOSE, FASTING 123 MG/DL (60-100); HDL CHOLESTEROL 38.5 MG/DL (>40); LDL CHOLESTEROL 62.5 MG/DL (<100); NON-HDL-C 103 MG/DL; POTASSIUM SERUM 5.1 MMOL/L (3.5-5.1); SODIUM LEVEL 136 MMOL/L (136-145); THYROID STIMULATING HORMONE 2.233 uIU/ML (0.55-4.78); TOTAL PROTEIN 7.3 G/DL (5.7-8.2); TRIGLYCERIDES LEVEL 200 MG/DL (<150)
[2022-08-25 16:10] LABS: HEMOGLOBIN A1c 6.3 % (4.0-6.0)
== END ==
LOC: M PLALAB 10:38
PROVIDERS: ATTEND Nurse Practitioner Family
DX: E78.2 Mixed hyperlipidemia (principal)

== ENCOUNTER → 2022-10-10 | Outpatient (CLI) | payer OTHER ==
[2022-10-10 15:26] LABS: BLOOD UREA NITROGEN 12 MG/DL (9-23); GLOMERULAR FILTRATION RATE > 60.0 (>58)
[2022-10-10 15:30] LABS: LITHIUM LEVEL 0.52 MMOL/L (0.60-1.20)
== END ==
LOC: M LAB 14:13
PROVIDERS: ATTEND Psychiatry & Neurology Psychiatry
DX: F31.81 Bipolar II disorder (principal); F41.0 Panic disorder [episodic paroxysmal anxiety]

== ENCOUNTER → 2022-11-20 | Outpatient (CLI) | payer OTHER | LOC: M LAB 10:56 | PROVIDERS: ATTEND Nurse Practitioner Family | DX: M25.511 Pain in right shoulder (principal) ==

== ENCOUNTER → 2023-08-14 | Outpatient (CLI) | payer OTHER ==
[2023-08-14 13:45] LABS: BASO % 0.3 % (0.0-1.0); EOS # 0.1 10^3/uL (0.0-0.5); EOS % 1.3 % (0.0-3.0); HEMATOCRIT 60.5 % (36.0-47.0); HEMOGLOBIN 17.5 g/dl (12.0-15.5); LYMPH # 1.6 10^3/uL (1.5-5.0); LYMPH % 17.7 % (24.0-44.0); MEAN CORPUSCULAR HEMOGLOBIN 24.7 pg (27.0-33.0); MEAN CORPUSCULAR HGB CONC 28.9 g/dl (32.0-36.5); MEAN CORPUSCULAR VOLUME 85.3 fl (80.0-96.0); MONO # 0.6 10^3/uL (0.0-0.8); MONO % 7.2 % (2.0-8.0); NEUTROPHILS # 6.5 10^3/uL (1.5-8.5); NEUTROPHILS % 72.7 % (36.0-66.0); PLATELET COUNT, AUTOMATED 193 10^3/uL (150-450); RED BLOOD COUNT 7.09 10^6/uL (4.00-5.40); WHITE BLOOD COUNT 8.9 10^3/uL (4.0-10.0)
[2023-08-14 14:14] LABS: ALBUMIN 3.1 G/DL (3.2-5.2); ALKALINE PHOSPHATASE 151 U/L (46-116); ALT/SGPT 22 U/L (7.0-40); AST/SGOT 18 U/L (<34); BILIRUBIN,TOTAL 0.7 MG/DL (0.3-1.2); BLOOD UREA NITROGEN 10 MG/DL (9-23); CALCIUM LEVEL 8.7 MG/DL (8.5-10.1); CARBON DIOXIDE LEVEL 35 MMOL/L (20-31); CHLORIDE LEVEL 102 MMOL/L (98-107); CHOLESTEROL LEVEL 115 MG/DL (<200); CHOLESTEROL RISK RATIO 3.96 (<5); GLOMERULAR FILTRATION RATE > 60.0 (>58); GLUCOSE, FASTING 116 MG/DL (60-100); LDL CHOLESTEROL 45.2 MG/DL (<100); POTASSIUM SERUM 5.3 MMOL/L (3.5-5.1); SODIUM LEVEL 139 MMOL/L (136-145); TOTAL PROTEIN 6.6 G/DL (5.7-8.2); TRIGLYCERIDES LEVEL 204 MG/DL (<150)
[2023-08-14 14:15] LABS: FREE T4 1.06 NG/DL (0.89-1.76)
== END ==
LOC: M PLALAB 09:10
PROVIDERS: ATTEND Nurse Practitioner Family
DX: E11.9 Type 2 diabetes mellitus without complications (principal); E78.2 Mixed hyperlipidemia; D75.1 Secondary polycythemia

== ENCOUNTER 2023-09-02 17:04 | Inpatient (IN) | payer OTHER ==
[~2023-09-02] VITALS: Ht 152.4 cm; Wt 162.0 kg
[2023-09-02 20:51] LABS: BASO % 0.5 % (0.0-1.0); EOS # 0.1 10^3/uL (0.0-0.5); EOS % 0.7 % (0.0-3.0); HEMOGLOBIN 16.3 g/dl (12.0-15.5); LYMPH # 1.1 10^3/uL (1.5-5.0); LYMPH % 11.9 % (24.0-44.0); MEAN CORPUSCULAR HEMOGLOBIN 24.7 pg (27.0-33.0); MEAN CORPUSCULAR HGB CONC 29.6 g/dl (32.0-36.5); MEAN CORPUSCULAR VOLUME 83.3 fl (80.0-96.0); MONO # 0.8 10^3/uL (0.0-0.8); MONO % 8.6 % (2.0-8.0); NEUTROPHILS # 6.9 10^3/uL (1.5-8.5); PLATELET COUNT, AUTOMATED 179 10^3/uL (150-450); WHITE BLOOD COUNT 8.8 10^3/uL (4.0-10.0)
[2023-09-02] MEDS: FUROSEMIDE 100MG/10ML VIAL IV ONE (20:51)
[2023-09-02 21:01] LABS: APPEARANCE, URINE CLEAR (CLEAR); BACTERIA, URINE AUTO NEGATIVE (NEGATIVE); BILIRUBIN, URINE AUTO NEGATIVE (NEGATIVE); BLOOD, URINE BLOOD NEGATIVE (NEGATIVE); COLOR, URINE STRAW (YELLOW); GLUCOSE, URINE (UA) AUTO NEGATIVE (NEGATIVE); KETONE, URINE AUTO NEGATIVE (NEGATIVE); LEUKOCYTE ESTERASE, URINE AUTO NEGATIVE (NEGATIVE); NITRITE, URINE AUTO NEGATIVE (NEGATIVE); PROTEIN, URINE AUTO NEGATIVE (NEGATIVE); RBC, URINE AUTO 0 /HPF (0-3); SPECIFIC GRAVITY URINE AUTO 1.004 (1.002-1.035); SQUAMOUS EPITHELIAL CELL UR AU 2 /HPF (0-6); UROBILINOGEN, URINE AUTO 0.2 mg/dL (0.0-2.0); WBC, URINE AUTO 1 /HPF (0-3)
[2023-09-02 21:36] LABS: CK-MB VALUE MASS 8.7 NG/ML (<3.6)
[2023-09-02 21:38] LABS: LIPASE 33 U/L (12-53)
[2023-09-02 21:40] LABS: ALBUMIN 3.3 G/DL (3.2-5.2); ALKALINE PHOSPHATASE 178 U/L (46-116); ALT/SGPT 32 U/L (7.0-40); AST/SGOT 41 U/L (<34); BILIRUBIN,DIRECT 0.5 MG/DL (<0.4); BILIRUBIN,TOTAL 1.3 MG/DL (0.3-1.2); BLOOD UREA NITROGEN 10 MG/DL (9-23); CALCIUM LEVEL 8.3 MG/DL (8.5-10.1); CARBON DIOXIDE LEVEL 34 MMOL/L (20-31); CHLORIDE LEVEL 102 MMOL/L (98-107); CREATININE FOR GFR 0.69 MG/DL (0.55-1.30); GLOMERULAR FILTRATION RATE > 60.0 (>58); GLUCOSE, FASTING 112 MG/DL (60-100); SODIUM LEVEL 141 MMOL/L (136-145); TOTAL PROTEIN 6.7 G/DL (5.7-8.2)
[2023-09-02 21:42] LABS: FREE T4 1.11 NG/DL (0.89-1.76); THYROID STIMULATING HORMONE 2.386 uIU/ML (0.55-4.78)
[2023-09-02 22:03] LABS: CPK CREATINE PHOSPHOKINASE 258 U/L (34-145); MB/CK RELATIVE INDEX 3.37 (< OR =4)
[2023-09-02] MEDS ORDERED: METF-817 PO (22:39)
[2023-09-02] MEDS ORDERED: CETI-25 PO (22:39)
[2023-09-02] MEDS ORDERED: ALBU8.5H INH (22:39)
[2023-09-02] MEDS ORDERED: NYST1POW9 TOP (22:39)
[2023-09-02] MEDS ORDERED: HIBI4LIQ EXT (22:39)
[2023-09-02] MEDS ORDERED: TRAZ-186 PO (22:39)
[2023-09-02] MEDS ORDERED: TIZA10TA PO (22:39)
[2023-09-02] MEDS ORDERED: FLON1SPR NARES (22:39)
[2023-09-02] MEDS ORDERED: ATOR40TA75 PO (22:39)
[2023-09-02] MEDS ORDERED: ABIL1TAB11 PO (22:39)
[2023-09-02] MEDS ORDERED: VARE0.5T PO (22:39)
[2023-09-02] MEDS ORDERED: DOXY100T2 PO (22:39)
[2023-09-02] MEDS ORDERED: CLIN1SOL TOP (22:39)
[2023-09-02] MEDS ORDERED: LITH300T2 PO (22:39)
[2023-09-02] MEDS ORDERED: SPIR50TA4 PO (22:39)
[2023-09-02] MEDS ORDERED: HOME MED LIST COMPLETE! XX SCH (22:40)
[2023-09-02] MEDS: ALBUTEROL SULFATE 2.5MG/0.5ML INH NEB SOLN INH ONE (23:47)
[2023-09-03] VITALS (20 sets, daily range): BP systolic 123–160; BP diastolic 60–84; TEMP 98.2–99.3; O2SAT 82–98
[2023-09-03] LABS: ABG BASE EXCESS 4.8 (-2.0-2.0); ABG HCO3 35.1 MMOL/L (22.0-26.0); ABG O2 SATURATION 97.8 % (95.0-99.0); ABG PARTIAL PRESSURE O2 116.2 mmHg (75.0-100.0); ABG STANDARD HCO3 28.8 MMOL/L. (22.0-26.0); ABG TOTAL CO2 37.4 MMOL/L (22.0-29.0); ABG pH (ARTERIAL) 7.279 UNITS (7.350-7.450)
[2023-09-03 00:04] LABS: ABG PARTIAL PRESSURE CO2 76.5 mmHg (35.0-45.0)
[2023-09-03] MEDS: LORazepam 2 MG/ML 1ML VIAL IV STA (00:39)
[2023-09-03 02:02] LABS: ABG BASE EXCESS 5.7 (-2.0-2.0); ABG HCO3 36.2 MMOL/L (22.0-26.0); ABG O2 SATURATION 98.2 % (95.0-99.0); ABG PARTIAL PRESSURE O2 141.9 mmHg (75.0-100.0); ABG STANDARD HCO3 29.6 MMOL/L. (22.0-26.0); ABG TOTAL CO2 38.6 MMOL/L (22.0-29.0); ABG pH (ARTERIAL) 7.275 UNITS (7.350-7.450)
[2023-09-03 02:07] LABS: ABG PARTIAL PRESSURE CO2 79.7 mmHg (35.0-45.0)
[2023-09-03 04:01] LABS: ABG BASE EXCESS 2.8 (-2.0-2.0); ABG HCO3 33.9 MMOL/L (22.0-26.0); ABG O2 SATURATION 88.5 % (95.0-99.0); ABG PARTIAL PRESSURE O2 60.6 mmHg (75.0-100.0); ABG STANDARD HCO3 26.7 MMOL/L. (22.0-26.0); ABG TOTAL CO2 36.4 MMOL/L (22.0-29.0)
[2023-09-03 04:06] LABS: ABG PARTIAL PRESSURE CO2 82.7 mmHg (35.0-45.0)
[2023-09-03 06:04] LABS: ABG BASE EXCESS 3.9 (-2.0-2.0); ABG HCO3 35.5 MMOL/L (22.0-26.0); ABG O2 SATURATION 99.1 % (95.0-99.0); ABG PARTIAL PRESSURE O2 170.1 mmHg (75.0-100.0); ABG TOTAL CO2 38.3 MMOL/L (22.0-29.0)
[2023-09-03 06:07] LABS: ABG pH (ARTERIAL) 7.219 UNITS (7.350-7.450)
[2023-09-03 06:10] LABS: TOTAL PROTEIN,RANDOM URINE 13.1 MG/DL (0.0-14.0)
[2023-09-03 06:15] LABS: CREATININE,RANDOM URINE 105.7 MG/DL
[2023-09-03] MEDS: IPRATROPIUM 0.5MG/ALBUTEROL 2.5MG INH SOL UD 3ML (DUONEB) NEB SCH (07:18)
[2023-09-03 08:22] LABS: ABG pH (ARTERIAL) 7.263 UNITS (7.350-7.450)
[2023-09-03 08:23] LABS: ABG BASE EXCESS 4.3 (-2.0-2.0); ABG HCO3 34.7 MMOL/L (22.0-26.0); ABG O2 SATURATION 97.7 % (95.0-99.0); ABG PARTIAL PRESSURE O2 108.4 mmHg (75.0-100.0); ABG STANDARD HCO3 28.3 MMOL/L. (22.0-26.0); ABG TOTAL CO2 37.1 MMOL/L (22.0-29.0)
[2023-09-03 08:26] LABS: ABG PARTIAL PRESSURE CO2 78.5 mmHg (35.0-45.0)
[2023-09-03] MEDS: VARENICLINE 0.5MG TABLET PO SCH (08:30)
[2023-09-03] MEDS ORDERED: traZODone 50 MG TAB PO PRN (10:15)
[2023-09-03] MEDS ORDERED: FLUTICASONE PROP 0.05% NASAL SPRAY 16 GM (FLONASE) NARES PRN (10:15)
[2023-09-03] MEDS ORDERED: CLINDAMYCIN TOP 1% SOLN 60ML BTL TOP PRN (10:15)
[2023-09-03] MEDS: FUROSEMIDE 40MG/4ML VIAL IV SCH (10:26)
[2023-09-03 10:36] LABS: VENOUS HCO3 32.6 MMOL/L (23.0-27.0); VENOUS O2 SATURATION 99.2 % (60.0-80.0); VENOUS PARTIAL PRESSURE CO2 59.1 mmHg (38.0-50.0); VENOUS PARTIAL PRESSURE O2 232.9 mmHg (30.0-50.0); VENOUS PH 7.359 UNITS (7.330-7.430); VENOUS TOTAL CO2 34.4 MMOL/L (24.0-28.0)
[2023-09-03] MEDS ORDERED: PILL CUTTER 1 EACH XX PRN (11:00)
[2023-09-03] MEDS: DOXYCYCLINE HYCLATE 100MG TABLET PO SCH (12:29)
[2023-09-03] MEDS: busPIRone 10 MG TAB PO SCH (12:30)
[2023-09-03] MEDS: LITHIUM CARBONATE 300 MG CAP PO SCH (12:30)
[2023-09-03 18:52] LABS: BLOOD UREA NITROGEN 10 MG/DL (9-23); CALCIUM LEVEL 8.7 MG/DL (8.5-10.1); CARBON DIOXIDE LEVEL > 40.0 MMOL/L (20-31); CHLORIDE LEVEL 99 MMOL/L (98-107); CREATININE FOR GFR 0.78 MG/DL (0.55-1.30); GLOMERULAR FILTRATION RATE > 60.0 (>58); GLUCOSE, FASTING 150 MG/DL (60-100); MAGNESIUM LEVEL 1.8 MG/DL (1.8-2.4); POTASSIUM SERUM 4.7 MMOL/L (3.5-5.1); SODIUM LEVEL 141 MMOL/L (136-145)
[2023-09-03] MEDS: ATORVASTATIN 20 MG TAB PO SCH (20:08)
[2023-09-03] MEDS: CETIRIZINE (ZyrTEC) 10 MG TAB PO SCH (20:08)
[2023-09-03] MEDS: MAG SULF 1GM/100ML (MAG RUN) 1 GM in IV 1 EA IV ONE (20:08)
[2023-09-03] MEDS: tiZANidine 4 MG TAB PO PRN (20:11)
[2023-09-04] VITALS (16 sets, daily range): BP systolic 121–160; BP diastolic 56–90; TEMP 97.9–99.6; O2SAT 88–95
[2023-09-04 00:17] LABS: ABG BASE EXCESS 8.9 (-2.0-2.0); ABG HCO3 40.2 MMOL/L (22.0-26.0); ABG O2 SATURATION 96.8 % (95.0-99.0); ABG STANDARD HCO3 32.7 MMOL/L. (22.0-26.0); ABG TOTAL CO2 42.9 MMOL/L (22.0-29.0); ABG pH (ARTERIAL) 7.277 UNITS (7.350-7.450)
[2023-09-04 00:20] LABS: ABG PARTIAL PRESSURE CO2 88.1 mmHg (35.0-45.0)
[2023-09-04 04:48] LABS: VENOUS BASE EXCESS 7.2 (-2.0-2.0); VENOUS HCO3 37.6 MMOL/L (23.0-27.0); VENOUS O2 SATURATION 99.4 % (60.0-80.0); VENOUS PARTIAL PRESSURE O2 162.6 mmHg (30.0-50.0); VENOUS STANDARD HCO3 31.2 MMOL/L; VENOUS TOTAL CO2 40.1 MMOL/L (24.0-28.0)
[2023-09-04 05:25] LABS: BLOOD UREA NITROGEN 12 MG/DL (9-23); CALCIUM LEVEL 8.2 MG/DL (8.5-10.1); CARBON DIOXIDE LEVEL > 40.0 MMOL/L (20-31); CHLORIDE LEVEL 96 MMOL/L (98-107); CREATININE FOR GFR 0.79 MG/DL (0.55-1.30); GLOMERULAR FILTRATION RATE > 60.0 (>58); GLUCOSE, FASTING 144 MG/DL (60-100); POTASSIUM SERUM 4.5 MMOL/L (3.5-5.1); SODIUM LEVEL 136 MMOL/L (136-145)
[2023-09-04] MEDS ORDERED: NICOTINE 21MG/24HR 1 EA TRANSDERMAL TD SCH (09:00)
[2023-09-04] MEDS: ENOXAPARIN 60MG/0.6ML SYRINGE (J1650 PER 10MG) SC SCH (09:00)
[2023-09-04 17:16] LABS: BLOOD UREA NITROGEN 13 MG/DL (9-23); CALCIUM LEVEL 8.4 MG/DL (8.5-10.1); CARBON DIOXIDE LEVEL > 40.0 MMOL/L (20-31); CHLORIDE LEVEL 94 MMOL/L (98-107); CREATININE FOR GFR 0.64 MG/DL (0.55-1.30); GLOMERULAR FILTRATION RATE > 60.0 (>58); GLUCOSE, FASTING 143 MG/DL (60-100); POTASSIUM SERUM 4.2 MMOL/L (3.5-5.1); SODIUM LEVEL 135 MMOL/L (136-145)
[2023-09-04] MEDS: MAG SULF 1GM/100ML (MAG RUN) 1 GM in IV 1 EA IV ONE (20:42)
[2023-09-04] MEDS: FUROSEMIDE 40MG/4ML VIAL IV SCH (20:42)
[2023-09-04] MEDS: NICOTINE 21MG/24HR 1 EA TRANSDERMAL TD SCH (20:51)
[2023-09-05] VITALS (12 sets, daily range): BP systolic 123–141; BP diastolic 58–79; TEMP 97.5–99; O2SAT 91–95
[2023-09-05 05:59] LABS: ABG BASE EXCESS 10.4 (-2.0-2.0); ABG HCO3 39.7 MMOL/L (22.0-26.0); ABG O2 SATURATION 94.9 % (95.0-99.0); ABG PARTIAL PRESSURE O2 75.7 mmHg (75.0-100.0); ABG STANDARD HCO3 34.1 MMOL/L. (22.0-26.0); ABG pH (ARTERIAL) 7.347 UNITS (7.350-7.450)
[2023-09-05 06:00] LABS: ABG PARTIAL PRESSURE CO2 74.1 mmHg (35.0-45.0)
[2023-09-05 06:18] LABS: BLOOD UREA NITROGEN 13 MG/DL (9-23); CALCIUM LEVEL 8.2 MG/DL (8.5-10.1); CARBON DIOXIDE LEVEL > 40.0 MMOL/L (20-31); CHLORIDE LEVEL 96 MMOL/L (98-107); CREATININE FOR GFR 0.68 MG/DL (0.55-1.30); GLOMERULAR FILTRATION RATE > 60.0 (>58); GLUCOSE, FASTING 128 MG/DL (60-100); PHOSPHORUS LEVEL 3.5 MG/DL (2.5-4.9); POTASSIUM SERUM 3.7 MMOL/L (3.5-5.1); SODIUM LEVEL 138 MMOL/L (136-145)
[2023-09-05] MEDS ORDERED: NICOTINE 21MG/24HR 1 EA TRANSDERMAL TD SCH (09:00)
[2023-09-05 16:55] LABS: BLOOD UREA NITROGEN 16 MG/DL (9-23); CALCIUM LEVEL 8.6 MG/DL (8.5-10.1); CARBON DIOXIDE LEVEL > 40.0 MMOL/L (20-31); CHLORIDE LEVEL 95 MMOL/L (98-107); CREATININE FOR GFR 0.72 MG/DL (0.55-1.30); GLOMERULAR FILTRATION RATE > 60.0 (>58); GLUCOSE, FASTING 154 MG/DL (60-100); POTASSIUM SERUM 3.7 MMOL/L (3.5-5.1); SODIUM LEVEL 139 MMOL/L (136-145)
[2023-09-05] MEDS: SENNA 8.6 MG TAB (SENOKOT) PO SCH (20:05)
[2023-09-05] MEDS: ACETAMINOPHEN TAB 650MG DOSE (2X325MG) PO ONE (23:05)
[2023-09-06 00:06] VITALS: BP 142/67; TEMP 98; O2SAT 94
[2023-09-06 04:51] VITALS: BP 144/68; TEMP 98.3; O2SAT 94
[2023-09-06 05:36] LABS: VENOUS BASE EXCESS 5.5 (-2.0-2.0); VENOUS HCO3 34.4 MMOL/L (23.0-27.0); VENOUS O2 SATURATION 96.2 % (60.0-80.0); VENOUS PARTIAL PRESSURE CO2 68.8 mmHg (38.0-50.0); VENOUS PARTIAL PRESSURE O2 86.2 mmHg (30.0-50.0); VENOUS PH 7.317 UNITS (7.330-7.430); VENOUS STANDARD HCO3 29.3 MMOL/L; VENOUS TOTAL CO2 36.5 MMOL/L (24.0-28.0)
[2023-09-06 06:14] LABS: BLOOD UREA NITROGEN 15 MG/DL (9-23); CALCIUM LEVEL 8.4 MG/DL (8.5-10.1); CARBON DIOXIDE LEVEL > 40.0 MMOL/L (20-31); CHLORIDE LEVEL 98 MMOL/L (98-107); CREATININE FOR GFR 0.67 MG/DL (0.55-1.30); GLOMERULAR FILTRATION RATE > 60.0 (>58); GLUCOSE, FASTING 142 MG/DL (60-100); POTASSIUM SERUM 3.9 MMOL/L (3.5-5.1); SODIUM LEVEL 139 MMOL/L (136-145)
[2023-09-06 08:00] VITALS: BP 136/76; TEMP 97.9; O2SAT 92
[2023-09-06 12:00] VITALS: BP 125/58; TEMP 97.5; O2SAT 91
[2023-09-06] MEDS: traMADol 50 MG TAB PO ONE ×2 (12:04→22:18)
[2023-09-06 16:00] VITALS: BP 145/67; TEMP 97.7; O2SAT 94
[2023-09-06 16:49] LABS: BLOOD UREA NITROGEN 16 MG/DL (9-23); CALCIUM LEVEL 8.5 MG/DL (8.5-10.1); CARBON DIOXIDE LEVEL > 40.0 MMOL/L (20-31); CHLORIDE LEVEL 98 MMOL/L (98-107); CREATININE FOR GFR 0.65 MG/DL (0.55-1.30); GLOMERULAR FILTRATION RATE > 60.0 (>58); GLUCOSE, FASTING 205 MG/DL (60-100); MAGNESIUM LEVEL 1.9 MG/DL (1.8-2.4); POTASSIUM SERUM 3.8 MMOL/L (3.5-5.1); SODIUM LEVEL 139 MMOL/L (136-145)
[2023-09-06 20:00] VITALS: BP 153/74; TEMP 98; O2SAT 95
[2023-09-06] MEDS: FUROSEMIDE 40MG/4ML VIAL IV SCH (20:52)
[2023-09-07] VITALS (10 sets, daily range): BP systolic 123–176; BP diastolic 62–96; TEMP 97.4–98.6; O2SAT 92–95
[2023-09-07 05:39] LABS: ABG BASE EXCESS 7.8 (-2.0-2.0); ABG HCO3 36.8 MMOL/L (22.0-26.0); ABG O2 SATURATION 96.1 % (95.0-99.0); ABG PARTIAL PRESSURE O2 83.7 mmHg (75.0-100.0); ABG STANDARD HCO3 31.6 MMOL/L. (22.0-26.0); ABG pH (ARTERIAL) 7.332 UNITS (7.350-7.450)
[2023-09-07 05:40] LABS: ABG PARTIAL PRESSURE CO2 71.1 mmHg (35.0-45.0)
[2023-09-07 06:31] LABS: BLOOD UREA NITROGEN 13 MG/DL (9-23); CALCIUM LEVEL 8.7 MG/DL (8.5-10.1); CARBON DIOXIDE LEVEL 40 MMOL/L (20-31); CHLORIDE LEVEL 96 MMOL/L (98-107); CREATININE FOR GFR 0.58 MG/DL (0.55-1.30); GLOMERULAR FILTRATION RATE > 60.0 (>58); GLUCOSE, FASTING 154 MG/DL (60-100); POTASSIUM SERUM 4.1 MMOL/L (3.5-5.1); SODIUM LEVEL 136 MMOL/L (136-145)
[2023-09-07] MEDS: FUROSEMIDE injection 250 MG in D5W 225 ML IV SCH (12:27)
[2023-09-07] MEDS: traMADol 50 MG TAB PO PRN (14:46)
[2023-09-07 17:12] LABS: CHOLESTEROL RISK RATIO 2.9 (<5); HDL CHOLESTEROL 31.3 MG/DL (>40); LDL CHOLESTEROL 31.9 MG/DL (<100); NON-HDL-C 59.7 MG/DL
[2023-09-07] MEDS: POTASSIUM CHLORIDE 10MEQ SR TABLET PO ONE (17:12)
[2023-09-07 17:14] LABS: THYROID STIMULATING HORMONE 2.349 uIU/ML (0.55-4.78); THYROXINE (T4) 8.7 UG/DL (4.5-10.9)
[2023-09-07 17:15] LABS: FREE THYROXINE INDEX 3.4 % (1.3-4.8); T UPTAKE 38.6 % (22.5-37.0)
[2023-09-07 17:19] LABS: HEMOGLOBIN A1c 6.6 % (4.0-6.0)
[2023-09-07 18:54] LABS: BLOOD UREA NITROGEN 18 MG/DL (9-23); CARBON DIOXIDE LEVEL > 40.0 MMOL/L (20-31); CHLORIDE LEVEL 98 MMOL/L (98-107); CREATININE FOR GFR 0.67 MG/DL (0.55-1.30); GLOMERULAR FILTRATION RATE > 60.0 (>58); GLUCOSE, FASTING 177 MG/DL (60-100); MAGNESIUM LEVEL 1.9 MG/DL (1.8-2.4); POTASSIUM SERUM 3.8 MMOL/L (3.5-5.1); SODIUM LEVEL 139 MMOL/L (136-145)
[2023-09-07] MEDS ORDERED: LOVE0.4I2 SC (20:07)
[2023-09-07] MEDS ORDERED: TRAM50TA2 PO (20:07)
[2023-09-07] MEDS ORDERED: NICO21PAT TD (20:07)
[2023-09-07] MEDS ORDERED: SENO8.6T5 PO (20:07)
[2023-09-08] VITALS: BP 158/88; TEMP 97.4; O2SAT 91
== END 2023-09-08 02:00 | disposition short-term general hospital (02) | DRG 133 ==
LOC: M ED 17:04 → M ED INP 09-03 01:23 → ENRESERV 09-03 02:52 → M ICU 09-03 03:06 → M PCU 09-07 18:21
PROVIDERS: ADMIT Internal Medicine; ATTEND General Practice
PROC: B246ZZZ Ultrasonography of Right and Left Heart (ICD-10-PCS; principal; 2023-09-05)
DX: J96.02 Acute respiratory failure with hypercapnia (principal); R60.0 Localized edema; E87.4 Mixed disorder of acid-base balance; E66.2 Morbid (severe) obesity with alveolar hypoventilation; Z68.44 Body mass index [BMI] 60.0-69.9, adult; D75.1 Secondary polycythemia; K76.0 Fatty (change of) liver, not elsewhere classified; F31.89 Other bipolar disorder; I10 Essential (primary) hypertension; L73.2 Hidradenitis suppurativa; F17.210 Nicotine dependence, cigarettes, uncomplicated; F40.10 Social phobia, unspecified; F41.1 Generalized anxiety disorder; F60.3 Borderline personality disorder; E11.9 Type 2 diabetes mellitus without complications; L70.0 Acne vulgaris; I27.29 Other secondary pulmonary hypertension; E78.5 Hyperlipidemia, unspecified; M54.50 Low back pain, unspecified; G89.29 Other chronic pain; J45.909 Unspecified asthma, uncomplicated; Z79.84 Long term (current) use of oral hypoglycemic drugs; Z79.899 Other long term (current) drug therapy; Z88.6 Allergy status to analgesic agent; Z88.8 Allergy status to other drugs, medicaments and biological substances

== ENCOUNTER → 2023-09-30 | Outpatient (CLI) | payer OTHER ==
[~2023-09-30] MED LIST changes: +ABIL1TAB11 PO; +ALBU8.5H INH; +ATOR40TA75 PO; +CETI-25 PO; +CLIN1SOL TOP; +DOXY100T2 PO; +FLON1SPR NARES; +HIBI4LIQ EXT; +LITH300T2 PO; +LOVE0.4I2 SC; +METF-817 PO; +NICO21PAT TD; +NYST1POW9 TOP; +SENO8.6T5 PO; +SPIR50TA4 PO; +TIZA10TA PO; +TRAM50TA2 PO; +TRAZ-186 PO; +VARE0.5T PO
[2023-09-30 14:14] LABS: BLOOD UREA NITROGEN 13 MG/DL (9-23); CALCIUM LEVEL 9.2 MG/DL (8.5-10.1); CARBON DIOXIDE LEVEL 33 MMOL/L (20-31); CHLORIDE LEVEL 96 MMOL/L (98-107); CREATININE FOR GFR 0.72 MG/DL (0.55-1.30); GLOMERULAR FILTRATION RATE > 60.0 (>58); GLUCOSE, FASTING 153 MG/DL (60-100); MAGNESIUM LEVEL 1.1 MG/DL (1.8-2.4); POTASSIUM SERUM 4.3 MMOL/L (3.5-5.1); SODIUM LEVEL 136 MMOL/L (136-145)
== END ==
LOC: M PLALAB 09:34
PROVIDERS: ATTEND Nurse Practitioner Family
DX: I50.810 Right heart failure, unspecified (principal)

== ENCOUNTER → 2024-03-08 | Outpatient (CLI) | payer MEDICAID ==
[2024-03-09 09:55] LABS: JAK2 MUTATIONS FOR PATH SENDOU See Pathology Report
== END ==
LOC: M PLALAB 15:14
PROVIDERS: ATTEND Internal Medicine Hematology
DX: D75.1 Secondary polycythemia (principal)

== ENCOUNTER → 2024-03-25 | Outpatient (CLI) | payer MEDICAID ==
[2024-03-25 13:11] LABS: BASO % 0.5 % (0.0-1.0); EOS # 0.1 10^3/uL (0.0-0.5); EOS % 1.3 % (0.0-3.0); HEMATOCRIT 43.1 % (36.0-47.0); HEMOGLOBIN 13.7 g/dl (12.0-15.5); LYMPH # 1.9 10^3/uL (1.5-5.0); MEAN CORPUSCULAR HEMOGLOBIN 30.8 pg (27.0-33.0); MEAN CORPUSCULAR HGB CONC 31.8 g/dl (32.0-36.5); MEAN CORPUSCULAR VOLUME 96.9 fl (80.0-96.0); MONO # 0.6 10^3/uL (0.0-0.8); MONO % 7.2 % (2.0-8.0); NEUTROPHILS # 5.5 10^3/uL (1.5-8.5); NEUTROPHILS % 66.8 % (36.0-66.0); PLATELET COUNT, AUTOMATED 269 10^3/uL (150-450); RED BLOOD COUNT 4.45 10^6/uL (4.00-5.40); WHITE BLOOD COUNT 8.2 10^3/uL (4.0-10.0)
[2024-03-25 13:30] LABS: CREATININE, URINE 26.5 MG/DL; MALB URINE SIEMENS < 3.0 MG/L; MAU/CREAT RATIO 11.3 MCG/MG (0.0-30.0)
[2024-03-25 13:33] LABS: ALBUMIN 3.8 G/DL (3.2-5.2); ALKALINE PHOSPHATASE 132 U/L (46-116); ALT/SGPT 28 U/L (7.0-40); AST/SGOT 19 U/L (<34); BILIRUBIN,TOTAL 0.6 MG/DL (0.3-1.2); BLOOD UREA NITROGEN 13 MG/DL (9-23); CALCIUM LEVEL 10.1 MG/DL (8.5-10.1); CARBON DIOXIDE LEVEL 32 MMOL/L (20-31); CHLORIDE LEVEL 99 MMOL/L (98-107); CHOLESTEROL LEVEL 149 MG/DL (<200); CHOLESTEROL RISK RATIO 3.64 (<5); CREATININE FOR GFR 0.75 MG/DL (0.55-1.30); GLOMERULAR FILTRATION RATE > 60.0 (>58); GLUCOSE, FASTING 110 MG/DL (60-100); HDL CHOLESTEROL 40.9 MG/DL (>40); LDL CHOLESTEROL 37.9 MG/DL (<100); NON-HDL-C 108.1 MG/DL; POTASSIUM SERUM 4.7 MMOL/L (3.5-5.1); SODIUM LEVEL 134 MMOL/L (136-145); TOTAL PROTEIN 7.5 G/DL (5.7-8.2); TRIGLYCERIDES LEVEL 351 MG/DL (<150)
[2024-03-25 13:34] LABS: FREE T4 1.22 NG/DL (0.89-1.76); THYROID STIMULATING HORMONE 2.316 uIU/ML (0.55-4.78)
[2024-03-25 13:48] LABS: HEMOGLOBIN A1c 5.1 % (4.0-6.0)
== END ==
LOC: M PLALAB 10:43
PROVIDERS: ATTEND Nurse Practitioner Family
DX: E11.9 Type 2 diabetes mellitus without complications (principal); E83.42 Hypomagnesemia; E78.2 Mixed hyperlipidemia; I27.23 Pulmonary hypertension due to lung diseases and hypoxia; I50.810 Right heart failure, unspecified

== ENCOUNTER → 2024-03-25 | Outpatient (CLI) | payer MEDICAID ==
[2024-03-25 13:11] LABS: ALBUMIN 3.7 G/DL (3.2-5.2); ALKALINE PHOSPHATASE 131 U/L (46-116); ALT/SGPT 28 U/L (7.0-40); AST/SGOT 21 U/L (<34); BILIRUBIN,TOTAL 0.7 MG/DL (0.3-1.2); BLOOD UREA NITROGEN 11 MG/DL (9-23); CALCIUM LEVEL 10.2 MG/DL (8.5-10.1); CARBON DIOXIDE LEVEL 31 MMOL/L (20-31); CHLORIDE LEVEL 101 MMOL/L (98-107); GLOMERULAR FILTRATION RATE > 60.0 (>58); GLUCOSE, FASTING 111 MG/DL (60-100); POTASSIUM SERUM 4.6 MMOL/L (3.5-5.1); SODIUM LEVEL 137 MMOL/L (136-145); TOTAL PROTEIN 7.5 G/DL (5.7-8.2)
[2024-03-28 13:07] LABS: ANA SCREEN, IFA NEGATIVE (NEGATIVE)
== END ==
LOC: M PLALAB 10:46
PROVIDERS: ATTEND Nurse Practitioner Family
DX: I27.20 Pulmonary hypertension, unspecified (principal)

== ENCOUNTER → 2024-04-14 | Outpatient (CLI) | payer MEDICAID | LOC: M PLALAB 15:41 | PROVIDERS: ATTEND Nurse Practitioner Family | DX: E55.9 Vitamin D deficiency, unspecified (principal) ==

== ENCOUNTER → 2024-10-05 | Outpatient (CLI) | payer MEDICAID ==
[~2024-10-05] MED LIST changes: +METF-1156 PO; -METF-817 PO; +NYST1POW3 TOP; -NYST1POW9 TOP
[2024-10-05 13:21] LABS: BASO % 0.4 % (0.0-1.0); EOS # 0.1 10^3/uL (0.0-0.5); EOS % 1.3 % (0.0-3.0); HEMATOCRIT 43.9 % (36.0-47.0); HEMOGLOBIN 13.8 g/dl (12.0-15.5); MEAN CORPUSCULAR HEMOGLOBIN 30.1 pg (27.0-33.0); MEAN CORPUSCULAR HGB CONC 31.4 g/dl (32.0-36.5); MEAN CORPUSCULAR VOLUME 95.9 fl (80.0-96.0); MONO # 0.7 10^3/uL (0.0-0.8); MONO % 6.9 % (2.0-8.0); NEUTROPHILS # 7.5 10^3/uL (1.5-8.5); NEUTROPHILS % 71.8 % (36.0-66.0); PLATELET COUNT, AUTOMATED 274 10^3/uL (150-450); RED BLOOD COUNT 4.58 10^6/uL (4.00-5.40); WHITE BLOOD COUNT 10.4 10^3/uL (4.0-10.0)
[2024-10-05 13:22] LABS: ALBUMIN 3.7 G/DL (3.2-5.2); ALKALINE PHOSPHATASE 110 U/L (35-104); ALT/SGPT 31 U/L (7.0-40); AST/SGOT 36 U/L (<34); BILIRUBIN,TOTAL 0.7 MG/DL (0.3-1.2); BLOOD UREA NITROGEN 12 MG/DL (9-23); CALCIUM LEVEL 8.8 MG/DL (8.5-10.1); CARBON DIOXIDE LEVEL 29 MMOL/L (20-31); CHLORIDE LEVEL 98 MMOL/L (98-107); CHOLESTEROL LEVEL 100 MG/DL (<200); CHOLESTEROL RISK RATIO 2.71 (<5); CREATININE FOR GFR 0.71 MG/DL (0.55-1.30); GLOMERULAR FILTRATION RATE > 90.0 (>58); GLUCOSE, FASTING 119 MG/DL (60-100); HDL CHOLESTEROL 36.9 MG/DL (>40); LDL CHOLESTEROL 21.1 MG/DL (<100); MAGNESIUM LEVEL 1.6 MG/DL (1.8-2.4); NON-HDL-C 63.1 MG/DL; POTASSIUM SERUM 4.4 MMOL/L (3.5-5.1); PTH INTACT 112.9 PG/ML (18.5-88.0); SODIUM LEVEL 135 MMOL/L (136-145); TOTAL PROTEIN 7.4 G/DL (5.7-8.2); TRIGLYCERIDES LEVEL 210 MG/DL (<150)
[2024-10-05 13:37] LABS: HEMOGLOBIN A1c 5.3 % (4.0-6.0)
[2024-10-05 13:42] LABS: CREATININE, URINE 77.5 MG/DL; MALB URINE SIEMENS < 3.0 MG/L
== END ==
LOC: M PLALAB 10:53
PROVIDERS: ATTEND Nurse Practitioner Family
DX: E11.9 Type 2 diabetes mellitus without complications (principal)

== ENCOUNTER → 2024-10-11 | Outpatient (CLI) | payer MEDICAID | LOC: M PLAIMG 12:06 | PROVIDERS: ATTEND Nurse Practitioner Family | DX: M25.511 Pain in right shoulder (principal); M19.011 Primary osteoarthritis, right shoulder ==

== ENCOUNTER → 2025-04-28 | Outpatient (CLI) | payer MEDICAID ==
[~2025-04-28] MED LIST changes: +SENN-225 PO; -SENO8.6T5 PO
[2025-04-28 14:33] LABS: BASO # 0.0 10^3/uL (0.0-0.2); BASO % 0.4 % (0.0-1.0); EOS # 0.1 10^3/uL (0.0-0.5); EOS % 1.3 % (0.0-3.0); LYMPH # 1.6 10^3/uL (1.5-5.0); LYMPH % 19.1 % (24.0-44.0); MONO # 0.6 10^3/uL (0.0-0.8); MONO % 7.0 % (2.0-8.0); NEUTROPHILS # 6.0 10^3/uL (1.5-8.5); NEUTROPHILS % 71.8 % (36.0-66.0); PLATELET COUNT, AUTOMATED 276 10^3/uL (150-450)
[2025-04-28 14:39] LABS: ALT/SGPT 26 U/L (7.0-40); AST/SGOT 21 U/L (<34); CALCIUM LEVEL 9.2 MG/DL (8.5-10.1); CARBON DIOXIDE LEVEL 30 MMOL/L (20-31); CHLORIDE LEVEL 97 MMOL/L (98-107); CHOLESTEROL LEVEL 224 MG/DL (<200); CHOLESTEROL RISK RATIO 5.04 (<5); CREATININE FOR GFR 0.57 MG/DL (0.55-1.30); GLOMERULAR FILTRATION RATE > 90.0 (>58); LDL CHOLESTEROL 102.6 MG/DL (<100); MAGNESIUM LEVEL 1.7 MG/DL (1.8-2.4); NON-HDL-C 179.6 MG/DL; POTASSIUM SERUM 4.7 MMOL/L (3.5-5.1); PTH INTACT 53.5 PG/ML (18.5-88.0); SODIUM LEVEL 137 MMOL/L (136-145); TRIGLYCERIDES LEVEL 385 MG/DL (<150)
[2025-04-28 14:40] LABS: FREE T4 1.16 NG/DL (0.89-1.76); TOTAL 25(OH) VITAMIN D 20.0 NG/ML (20.0-100.0)
[2025-04-28 14:44] LABS: ESTIMATED AVERAGE GLUCOSE 143.0 MG/DL (60-110)
== END ==
LOC: M PLALAB 10:24
PROVIDERS: ATTEND Nurse Practitioner Family
DX: Z00.00 Encounter for general adult medical examination without abnormal findings (principal); E55.9 Vitamin D deficiency, unspecified; E78.2 Mixed hyperlipidemia

== ENCOUNTER → 2025-04-28 | Outpatient (CLI) | payer MEDICAID ==
[2025-04-28 14:36] LABS: CREATININE FOR GFR 0.59 MG/DL (0.55-1.30); GLOMERULAR FILTRATION RATE > 90.0 (>58); LITHIUM LEVEL 0.48 MMOL/L (1.0-1.20)
== END ==
LOC: M PLALAB 10:15
PROVIDERS: ATTEND Psychiatry & Neurology Psychiatry
DX: F31.81 Bipolar II disorder (principal); F41.1 Generalized anxiety disorder; F41.0 Panic disorder [episodic paroxysmal anxiety]

== ENCOUNTER → 2025-06-06 | Outpatient (CLI) | payer MEDICAID | LOC: M PLAIMG 11:51 → M PLALAB 11:51 | PROVIDERS: ATTEND Nurse Practitioner Family | DX: M25.561 Pain in right knee (principal); M25.562 Pain in left knee; M17.0 Bilateral primary osteoarthritis of knee ==